=== PATIENT | female | born 1990 | race Caucasian/White ===

== ENCOUNTER → 2025-05-01 10:31 | Outpatient (BNVA) | payer MEDICARE, OTHER, SELFPAY | PROVIDERS: Visit Provider Psychiatry & Neurology Psychiatry | DX: Z79.899 Other long term (current) drug therapy (principal) | CPT/HCPCS: 80053; 80061; 83036; 83721; 84443; 85025 ==

== ENCOUNTER → 2025-07-29 13:46 | Outpatient (BNVA) | payer MEDICARE, MEDICAID, SELFPAY ==
[2025-06-26 13:05] VITALS: BP 122/83; BMI 27.9
== END ==
PROVIDERS: PCP Nurse Practitioner; Visit Provider Nurse Practitioner
DX: E11.9 Type 2 diabetes mellitus without complications (principal)
CPT/HCPCS: 80053; 80061; 83036; 84443; 85025

== ENCOUNTER 2025-08-19 18:29 | Inpatient (IN) | payer MEDICARE, MEDICAID, SELFPAY ==
[2025-06-26 13:05] VITALS: BP 122/83; BMI 27.9
[2025-08-19 18:31] VITALS: BP 134/81; PULSE 105; RESP 18; TEMP 36.7; O2SAT 96; BMI 26.6
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
--- OUTSIDE RECORDS SUMMARY | 2025-08-19 19:07 | XMS_ITS | Encounter Summary ---
Author Organization [facility] Address [address] [place] [address] Care Team Providers Care Multi Spindle Operator Name Role Phone Henrry Soares MD Primary Care Provider [phone] Encounter Details Date Type Department Care Team (Latest Contact Info) Description 09/08/2003 Outpatient [facility] Medicine[address] [phone] Saul Rizzo MD [address] [phone] NEUROTIC DEPRESSION (Primary Dx) Social History Tobacco Use Types Packs/Day Years Used Date Smoking Tobacco: Never Assessed Comments Unknown Sex and Gender Information Value Date Recorded Sex Assigned at Not on file Legal Sex Female 6:13 AM WOOL SACKER Gender Identity Not on file Sexual Orientation Not on file documented as of this encounter Plan of Treatment Not on file documented as of this encounter Visit Diagnoses Diagnosis Dysthymic disorder- Primary documented in this encounter Care Teams Multi Spindle Operator Relationship Specialty Start Date End Date Henrry Soares MD PCP - General 03/06/08 documented as of this encounter
--- OUTSIDE RECORDS SUMMARY | 2025-08-19 19:07 | XMS_ITS | Encounter Summary ---
Author Organization [facility] Address [address] [place] [address] Care Team Providers Care Account Assistant Name Role Phone Henrry Soares MD Primary Care Provider [phone] Encounter Details Date Type Department Care Team (Late st Contact Info) Description 06/25/2004 Outpatient [facility] Oral and Maxillo Surgery[address] [place] [address] Social History Tobacco Use Types Packs/Day Years Used Date Smoking Tobacco: Never Assessed Comments Unknown Sex and Gender Information Value Date Recorded Sex Assigned at Not on file Legal Sex Female 6:13 AM NARROW FABRIC CALENDERER Gender Identity Not on file Sexual Orientation Not on file documented as of this encounter Plan of Treatment Not on file documented as of this encounter Visit Diagnoses Not on filedocumented in this encounter Care Teams Account Assistant Relationship Specialty Start Date End Date Henrry Soares MD PCP - General 03/06/08 documented as of this encounter
--- OUTSIDE RECORDS SUMMARY | 2025-08-19 19:07 | XMS_ITS | Encounter Summary ---
Author Organization [facility] Address [address] [place] [address] Care Team Providers Care Concrete Building Assembler Name Role Phone Henrry Soares MD Primary Care Provider [phone] Encounter Details Date Type Department Care Team (Latest Contact Info) Description 10/22/2003 Outpatient Historical [facility] Medicine- [address] [phone] Charlette Lu MD [address] [place] [address] NEUROTIC DEPRESSION (Primary Dx) Social History Tobacco Use Types Packs/Day Years Used Date Smoking Tobacco: Never Assessed Comments Unknown Sex and Gender Information Value Date Recorded Sex Assigned at Not on file Legal Sex Female 6:13 AM 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
--- OUTSIDE RECORDS SUMMARY | 2025-08-19 19:07 | XMS_ITS | Encounter Summary ---
Author Organization [facility] Address [address] [place] [address] Care Team Providers Care Track Vehicle Repairer Name Role Phone Henrry Soares MD Primary Care Provider Encounter Details Date Type Department Care Team (Latest Contact Info) Description 11/02/2005 Outpatient Historical [facility] [address] [phone] Bushra Palomino, [facility] [facility] [address] [place] [address] RECURR DEPR PSYCH-SEVERE (CMS/HCC) (Primary Dx) Social History Tobacco Use Types Packs/Day Years Used Date Smoking Tobacco: Never Assessed Comments Unknown Sex and Gender Information Value Date Recorded Sex Assigned at Not on file Legal Sex Female 6:13 AM IT PROGRAM AUDITOR Gender Identity Not on file Sexual Orientation Not on file documented as of this encounter Plan of Treatment Not on file documented as of this encounter Visit Diagnoses Diagnosis Major depressive disorder, recurrent episode, severe, without mention of psychotic behavior (CMS/HCC)- Primary Major depressive disorder, recurrent episode, severe, without mention of psychotic behavior documented in this encounter Care Teams Track Vehicle Repairer Relationship Specialty Start Date End Date Henrry Soares MD PCP - General 03/06/08 documented as of this encounter
--- OUTSIDE RECORDS SUMMARY | 2025-08-19 19:07 | XMS_ITS | Encounter Summary ---
Author Organization [facility] Address [address] [place] [address] Care Team Providers Care Mechanical Drafter Name Role Phone Henrry Soares MD Primary Care Provider Encounter Details Date Type Department Care Team (Latest Contact Info) Description 11/11/2005 Outpatient Historical [facility] Medicine [place] [address] [phone] Judit Golden, [facility] [address] [phone] ACUTE URI NOS (Primary Dx) Social History Tobacco Use Types Packs/Day Years Used Date Smoking Tobacco: Never Assessed Comments Unknown Sex and Gender Information Value Date Recorded Sex Assigned at Not on file Legal Sex Female 6:13 AM RAW MILL OPERATOR Gender Identity Not on file Sexual Orientation Not on file documented as of this encounter Plan of Treatment Not on file documented as of this encounter Visit Diagnoses Diagnosis Acute upper respiratory infections of unspecified site- Primary documented in this encounter Care Teams Mechanical Drafter Relationship Specialty Start Date End Date Henrry Soares MD PCP - General 03/06/08 documented as of this encounter
--- OUTSIDE RECORDS SUMMARY | 2025-08-19 19:07 | XMS_ITS | Encounter Summary ---
Author Organization [facility] Address [address] [place] [address] Care Team Providers Care Shoulder Boner Name Role Phone Henrry Soares MD Primary Care Provider Encounter Details Date Type Department Care Team (Latest Contact Info) Description 03/15/2006 Outpatient Historical [facility] Medicine [place] [address] [phone] Henrry Soares MD [address] [place] [phone] Unspecified Backache (Primary Dx) Social History Tobacco Use Types Packs/Day Years Used Date Smoking Tobacco: Never Assessed Comments Unknown Sex and Gender Information Value Date Recorded Sex Assigned at Not on file Legal Sex Female 6:13 AM ASSEMBLY STOCK SUPERVISOR Gender Identity Not on file Sexual Orientation Not on file documented as of this encounter Plan of Treatment Not on file documented as of this encounter Visit Diagnoses Diagnosis Backache, unspecified- Primary documented in this encounter Care Teams Shoulder Boner Relationship Specialty Start Date End Date eHnrry Soares MD PCP - General 03/06/08 documented as of this encounter
--- OUTSIDE RECORDS SUMMARY | 2025-08-19 19:07 | XMS_ITS | Encounter Summary ---
Author Organization [facility] Address [address] [place] [address] Care Team Providers Care Bullet Swaging Machine Operator Name Role Phone Henrry Soares MD Primary Care Provider [phone] Encounter Details Date Type Department Care Team (Late st Contact Info) Description 03/10/2004 Outpatient Historical [address] [phone] Social History Tobacco Use Types Packs/Day Years Used Date Smoking Tobacco: Never Assessed Comments Unknown Sex and Gender Information Value Date Recorded Sex Assigned at Not on file Legal Sex Female 6:13 AM BANKRUPTCY LEGAL ASSISTANT Gender Identity Not on file Sexual Orientation Not on file documented as of this encounter Plan of Treatment Not on file documented as of this encounter Visit Diagnoses Not on filedocumented in this encounter Care Teams Bullet Swaging Machine Operator Relationship Specialty Start Date End Date Henrry Soares MD PCP - General 03/06/08 documented as of this encounter
--- OUTSIDE RECORDS SUMMARY | 2025-08-19 19:07 | XMS_ITS | Encounter Summary ---
Author Organization [facility] Address [address] [place] [address] Care Team Providers Care Restaurant Shift Supervisor Name Role Phone Henrry Soares MD Primary Care Provider [phone] Encounter Details Date Type Department Care Team (Latest Contact Info) Description 09/22/2003 Outpatient Historical [facility] Medicine[address] [phone] Saul Rizzo MD [address] [phone] NEUROTIC DEPRESSION (Primary Dx) Social History Tobacco Use Types Packs/Day Years Used Date Smoking Tobacco: Never Assessed Comments Unknown Sex and Gender Information Value Date Recorded Sex Assigned at Not on file Legal Sex Female 6:13 AM BUCKLE SEWER MACHINE Gender Identity Not on file Sexual Orientation Not on file documented as of this encounter Plan of Treatment Not on file documented as of this encounter Visit Diagnoses Diagnosis Dysthymic disorder- Primary documented in this encounter Care Teams Restaurant Shift Supervisor Relationship Specialty Start Date End Date Henrry Soares MD PCP - General 03/06/08 documented as of this encounter
--- OUTSIDE RECORDS SUMMARY | 2025-08-19 19:07 | XMS_ITS | Encounter Summary ---
Author Organization [facility] Address [address] [place] [address] Care Team Providers Care Marine Biologist Name Role Phone Henrry Soares MD Primary Care Provider Encounter Details Date Type Department Care Team (Latest Contact Info) Description 11/23/[address] [facility] [address] [phone] Bushra Palomino, [facility] [address] [place] [address] RECURR DEPR PSYCH-SEVERE (CMS/HCC) (Primary Dx) Social History Tobacco Use Types Packs/Day Years Used Date Smoking Tobacco: Never Assessed Comments Unknown Sex and Gender Information Value Date Recorded Sex Assigned at Not on file Legal Sex Female 6:13 AM SIX SIGMA PROJECT MANAGER Gender Identity Not on file Sexual Orientation Not on file documented as of this encounter Plan of Treatment Not on file documented as of this encounter Visit Diagnoses Diagnosis Major depressive disorder, recurrent episode, severe, without mention of psychotic behavior (CMS/HCC)- Primary Major depressive disorder, recurrent episode, severe, without mention of psychotic behavior documented in this encounter Care Teams Marine Biologist Relationship Specialty Start Date End Date Henrry Soares MD PCP - General 03/06/08 documented as of this encounter
--- OUTSIDE RECORDS SUMMARY | 2025-08-19 19:07 | XMS_ITS | Encounter Summary ---
Author Organization [facility] Address [address] [place] [address] Care Team Providers Care General Dentist/Owner Name Role Phone Henrry Soares MD Primary Care Provider Encounter Details Date Type Department Care Team (Latest Contact Info) Description 08/20/2007 Outpatient Historical [facility] Medicine [place] [address] [phone] Henrry Soares MD [address] [place] [phone] Acute Bronchitis (Primary Dx) Social History Tobacco Use Types Packs/Day Years Used Date Smoking Tobacco: Never Assessed Comments Unknown Sex and Gender Information Value Date Recorded Sex Assigned at Not on file Legal Sex Female 6:13 AM PHD INTERNSHIP Gender Identity Not on file Sexual Orientation Not on file documented as of this encounter Plan of Treatment Not on file documented as of this encounter Visit Diagnoses Diagnosis Acute bronchitis- Primary documented in this encounter Care Teams General Dentist/Owner Relationship Specialty Start Date End Date Henrry Soares MD PCP - General 03/06/08 documented as of this encounter
--- OUTSIDE RECORDS SUMMARY | 2025-08-19 19:07 | XMS_ITS | Encounter Summary ---
Author Organization [facility] Address [address] [place] [address] Care Team Providers Care Direct Chill Casting Operator Name Role Phone Henrry Soares MD Primary Care Provider Encounter Details Date Type Department Care Team (Latest Contact Info) Description 07/03/2006 Outpatient Historical [facility] Medicine [place] [address] [phone] Henrry Soares MD [address] [place] [phone] Acute Bronchitis (Primary Dx) Social History Tobacco Use Types Packs/Day Years Used Date Smoking Tobacco: Never Assessed Comments Unknown Sex and Gender Information Value Date Recorded Sex Assigned at Not on file Legal Sex Female 6:13 AM ADJUNCT FACULTY FOR MEDICAL TERMINOLOGY Gender Identity Not on file Sexual Orientation Not on file documented as of this encounter Plan of Treatment Not on file documented as of this encounter Visit Diagnoses Diagnosis Acute bronchitis- Primary documented in this encounter Care Teams Direct Chill Casting Operator Relationship Specialty Start Date End Date Henrry Soares MD PCP - General 03/06/08 documented as of this encounter
--- OUTSIDE RECORDS SUMMARY | 2025-08-19 19:07 | XMS_ITS | Encounter Summary ---
Author Organization [facility] Address [address] [place] [address] Care Team Providers Care Oral Surgery Technician Name Role Phone Henrry Soares MD Primary Care Provider Encounter Details Date Type Department Care Team (Latest Contact Info) Description 05/10/2006 Outpatient Historical [facility] [address] [phone] Henrry Soares MD [address] [place] [phone] Insomnia, Unspecified (Primary Dx); Dysthymic Disorder Social History Tobacco Use Types Packs/Day Years Used Date Smoking Tobacco: Never Assessed Comments Unknown Sex and Gender Information Value Date Recorded Sex Assigned at Not on file Legal Sex Female 6:13 AM SENIOR WEB SERVICES DEVELOPER Gender Identity Not on file Sexual Orientation Not on file documented as of this encounter Plan of Treatment Not on file documented as of this encounter Visit Diagnoses Diagnosis Insomnia, unspecified- Primary Dysthymic disorder documented in this encounter Care Teams Oral Surgery Technician Relationship Specialty Start Date End Date Henrry Soares MD PCP - General 03/06/08 documented as of this encounter
--- OUTSIDE RECORDS SUMMARY | 2025-08-19 19:07 | XMS_ITS | Encounter Summary ---
Author Organization [facility] Address [address] [place] [address] Care Team Providers Care Absorption Plant Operator Helper Name Role Phone Henrry Soares MD Primary Care Provider Encounter Details Date Type Department Care Team (Latest Contact Info) Description 11/16/2005 Outpatient Historical [facility] [address] [phone] Bushra Palomino, [facility] [address] [place] [address] RECURR DEPR PSYCH-SEVERE (CMS/HCC) (Primary Dx) Social History Tobacco Use Types Packs/Day Years Used Date Smoking Tobacco: Never Assessed Comments Unknown Sex and Gender Information Value Date Recorded Sex Assigned at Not on file Legal Sex Female 6:13 AM CUPOLA TAPPER HELPER Gender Identity Not on file Sexual Orientation Not on file documented as of this encounter Plan of Treatment Not on file documented as of this encounter Visit Diagnoses Diagnosis Major depressive disorder, recurrent episode, severe, without mention of psychotic behavior (CMS/HCC)- Primary Major depressive disorder, recurrent episode, severe, without mention of psychotic behavior documented in this encounter Care Teams Absorption Plant Operator Helper Relationship Specialty Start Date End Date Henrry Soares MD PCP - General 03/06/08 documented as of this encounter
--- OUTSIDE RECORDS SUMMARY | 2025-08-19 19:07 | XMS_ITS | Encounter Summary ---
Author Organization [facility] Address [address] [place] [address] Care Team Providers Care Cutter Wet Machine Name Role Phone Henrry Soares MD Primary Care Provider Encounter Details Date Type Department Care Team (Latest Contact Info) Description 03/11/2004 Outpatient Historical [facility] [address] [phone] Henrry Soares MD [address] [place] [phone] SPRAIN OF ANKLE NOS (Primary Dx); NEUROTIC DEPRESSION Social History Tobacco Use Types Packs/Day Years Used Date Smoking Tobacco: Never Assessed Comments Unknown Sex and Gender Information Value Date Recorded Sex Assigned at Not on file Legal Sex Female 6:13 AM APPLICATIONS SPECIALIST Gender Identity Not on file Sexual Orientation Not on file documented as of this encounter Plan of Treatment Not on file documented as of this encounter Visit Diagnoses Diagnosis Sprain of ankle, unspecified site- Primary Dysthymic disorder documented in this encounter Care Teams Cutter Wet Machine Relationship Specialty Start Date End Date Henrry Soares MD PCP - General 03/06/08 documented as of this encounter
--- OUTSIDE RECORDS SUMMARY | 2025-08-19 19:07 | XMS_ITS | Encounter Summary ---
Author Organization [facility] Address [address] [place] [address] Care Team Providers Care Pool Servicer Name Role Phone Henrry Soares MD Primary Care Provider Encounter Details Date Type Department Care Team (Latest Contact Info) Description 11/30/2005 Outpatient Historical [facility] [address] [place] [address] [phone] Henrry Soares MD [address] [phone] DYSTHYMIC DISORDER (Primary Dx) Social History Tobacco Use Types Packs/Day Years Used Date Smoking Tobacco: Never Assessed Comments Unknown Sex and Gender Information Value Date Recorded Sex Assigned at Not on file Legal Sex Female 6:13 AM ACID PATROLLER Gender Identity Not on file Sexual Orientation Not on file documented as of this encounter Plan of Treatment Not on file documented as of this encounter Visit Diagnoses Diagnosis Dysthymic disorder- Primary documented in this encounter Care Teams Pool Servicer Relationship Specialty Start Date End Date Henrry Soares MD PCP - General 03/06/08 documented as of this encounter
--- OUTSIDE RECORDS SUMMARY | 2025-08-19 19:07 | XMS_ITS | Encounter Summary ---
Author Organization [facility] Address [address] [place] [address] Care Team Providers Care Aircraft Part Assembler Name Role Phone Henrry Soares MD Primary Care Provider Encounter Details Date Type Department Care Team (Late st Contact Info) Description 03/24/2004 Outpatient Historical [address] [phone] Social History Tobacco Use Types Packs/Day Years Used Date Smoking Tobacco: Never Assessed Comments Unknown Sex and Gender Information Value Date Recorded Sex Assigned at Not on file Legal Sex Female 6:13 AM WELDING ROBOT OPERATOR Gender Identity Not on file Sexual Orientation Not on file documented as of this encounter Plan of Treatment Not on file documented as of this encounter Visit Diagnoses Not on filedocumented in this encounter Care Teams Aircraft Part Assembler Relationship Specialty Start Date End Date Henrry Soares MD PCP - General 03/06/08 documented as of this encounter
--- OUTSIDE RECORDS SUMMARY | 2025-08-19 19:07 | XMS_ITS | Encounter Summary ---
Author Organization [facility] Address [address] [place] [address] Care Team Providers Care Certified Phlebotomist Name Role Phone Henrry Soares MD Primary Care Provider Encounter Details Date Type Department Care Team (Late st Contact Info) Description 07/16/2007 Outpatient Historical [facility] [address] [phone] Moira Hodge MD [address] [place] [address] Social History Tobacco Use Types Packs/Day Years Used Date Smoking Tobacco: Never Assessed Comments Unknown Sex and Gender Information Value Date Recorded Sex Assigned at Not on file Legal Sex Female 6:13 AM KST OPERATOR Gender Identity Not on file Sexual Orientation Not on file documented as of this encounter Plan of Treatment Not on file documented as of this encounter Visit Diagnoses Not on filedocumented in this encounter Care Teams Certified Phlebotomist Relationship Specialty Start Date End Date Henrry Soares MD PCP - General 03/06/08 documented as of this encounter
--- OUTSIDE RECORDS SUMMARY | 2025-08-19 19:07 | XMS_ITS | Encounter Summary ---
Author Organization [facility] Address [address] [place] [address] Care Team Providers Care Inspector Ball Points Name Role Phone Henrry Soares MD Primary Care Provider Encounter Details Date Type Department Care Team (Latest Contact Info) Description 02/10/2004 Outpatient Historical [facility] [address] [phone] Henrry Soares MD [address], [place] [phone] NONINFEC GASTROENTERIT NEC (Primary Dx) Social History Tobacco Use Types Packs/Day Years Used Date Smoking Tobacco: Never Assessed Comments Unknown Sex and Gender Information Value Date Recorded Sex Assigned at Not on file Legal Sex Female 6:13 AM FIRE CODE INSPECTOR Gender Identity Not on file Sexual Orientation Not on file documented as of this encounter Plan of Treatment Not on file documented as of this encounter Visit Diagnoses Diagnosis Other and unspecified noninfectious gastroenteritis and colitis(558.9)- Primary Other and unspecified noninfectious gastroenteritis and colitis documented in this encounter Care Teams Inspector Ball Points Relationship Specialty Start Date End Date Henrry Soares MD PCP - General 03/06/08 documented as of this encounter
--- OUTSIDE RECORDS SUMMARY | 2025-08-19 19:07 | XMS_ITS | Encounter Summary ---
Author Organization [facility] Address [address] [place] [address] Care Team Providers Care Carbonation Equipment Operator Name Role Phone Henrry Soares MD Primary Care Provider Encounter Details Date Type Department Care Team (Latest Contact Info) Description 09/07/2005 Outpatient Historical [facility] [address] [phone] Bushra Palomino, [facility] [address] [place] [address] RECURR DEPR PSYCH-SEVERE (CMS/HCC) (Primary Dx) Social History Tobacco Use Types Packs/Day Years Used Date Smoking Tobacco: Never Assessed Comments Unknown Sex and Gender Information Value Date Recorded Sex Assigned at Not on file Legal Sex Female 6:13 AM ORTHOPAEDIC TECHNOLOGIST Gender Identity Not on file Sexual Orientation Not on file documented as of this encounter Plan of Treatment Not on file documented as of this encounter Visit Diagnoses Diagnosis Major depressive disorder, recurrent episode, severe, without mention of psychotic behavior (CMS/HCC)- Primary Major depressive disorder, recurrent episode, severe, without mention of psychotic behavior documented in this encounter Care Teams Carbonation Equipment Operator Relationship Specialty Start Date End Date Henrry Soares MD PCP - General 03/06/08 documented as of this encounter
--- OUTSIDE RECORDS SUMMARY | 2025-08-19 19:07 | XMS_ITS | Encounter Summary ---
Author Organization [facility] Address [address] [place] [address] Care Team Providers Care Naval Inspector Name Role Phone Henrry Soares MD Primary Care Provider Encounter Details Date Type Department Care Team (Latest Contact Info) Description 01/19/1999 Outpatient Historical [facility] [address] [phone] Thierry Cornelius MD [address] [place] [address] Influenza with other respiratory manifestations (Primary Dx) Social History Tobacco Use Types Packs/Day Years Used Date Smoking Tobacco: Never Assessed Comments Unknown Sex and Gender Information Value Date Recorded Sex Assigned at Not on file Legal Sex Female 6:13 AM WELDING MACHINE OPERATOR GAS Gender Identity Not on file Sexual Orientation Not on file documented as of this encounter Plan of Treatment Not on file documented as of this encounter Visit Diagnoses Diagnosis Influenza with other respiratory manifestations- Primary documented in this encounter Care Teams Naval Inspector Relationship Specialty Start Date End Date Henrry Soares MD PCP - General 03/06/08 documented as of this encounter
--- OUTSIDE RECORDS SUMMARY | 2025-08-19 19:07 | XMS_ITS | Encounter Summary ---
Author Organization [facility] Address [address] [place] [address] Care Team Providers Care Preschool Special Education Teacher Name Role Phone Henrry Soares MD Primary Care Provider Encounter Details Date Type Department Care Team (Latest Contact Info) Description 12/28/2005 Outpatient Historical [facility] [address] [phone] Bushra Palomino, [facility] [address] [place] [address] Recur Major Depress, Severe (CMS/HCC) (Primary Dx) Social History Tobacco Use Types Packs/Day Years Used Date Smoking Tobacco: Never Assessed Comments Unknown Sex and Gender Information Value Date Recorded Sex Assigned at Not on file Legal Sex Female 6:13 AM STATION ENGINEER CHIEF Gender Identity Not on file Sexual Orientation Not on file documented as of this encounter Plan of Treatment Not on file documented as of this encounter Visit Diagnoses Diagnosis Major depressive disorder, recurrent episode, severe, without mention of psychotic behavior (CMS/HCC)- Primary Major depressive disorder, recurrent episode, severe, without mention of psychotic behavior documented in this encounter Care Teams Preschool Special Education Teacher Relationship Specialty Start Date End Date Henrry Soares MD PCP - General 03/06/08 documented as of this encounter
--- OUTSIDE RECORDS SUMMARY | 2025-08-19 19:07 | XMS_ITS | Encounter Summary ---
Author Organization [facility] Address [address] [place] [address] Care Team Providers Care Pinion Polisher Name Role Phone Henrry Soares MD Primary Care Provider Encounter Details Date Type Department Care Team (Latest Contact Info) Description 09/29/2004 Outpatient Historical [facility] [address], [place] [phone] Henrry Soares MD [address], [place] [phone] DYSTHYMIC DISORDER (Primary Dx); DRUG ABUSE NEC-UNSPEC ([facility]) Social History Tobacco Use Types Packs/Day Years Used Date Smoking Tobacco: Never Assessed Comments Unknown Sex and Gender Information Value Date Recorded Sex Assigned at Not on file Legal Sex Female 6:13 AM MEDICAL RECORD SPECIALIST Gender Identity Not on file Sexual Orientation Not on file documented as of this encounter Plan of Treatment Not on file documented as of this encounter Visit Diagnoses Diagnosis Dysthymic disorder- Primary Other, mixed, or unspecified nondependent drug abuse, unspecified documented in this encounter Care Teams Pinion Polisher Relationship Specialty Start Date End Date Henrry Soares MD PCP - General 03/06/08 documented as of this encounter
--- OUTSIDE RECORDS SUMMARY | 2025-08-19 19:07 | XMS_ITS | Encounter Summary ---
Author Organization [facility] Address [address] [place] [address] Care Team Providers Care National Sales Director Name Role Phone Henrry Soares MD Primary Care Provider Encounter Details Date Type Department Care Team (Latest Contact Info) Description 02/02/2004 Outpatient Historical [address] [phone] Monik Umanzor MD [address] [place] [address], [address] EPISTAXIS (Primary Dx) Social History Tobacco Use Types Packs/Day Years Used Date Smoking Tobacco: Never Assessed Comments Unknown Sex and Gender Information Value Date Recorded Sex Assigned at Not on file Legal Sex Female 6:13 AM VENEER MANUFACTURER Gender Identity Not on file Sexual Orientation Not on file documented as of this encounter Plan of Treatment Not on file documented as of this encounter Visit Diagnoses Diagnosis Epistaxis- Primary documented in this encounter Care Teams National Sales Director Relationship Specialty Start Date End Date Henrry Soares MD PCP - General 03/06/08 documented as of this encounter
--- OUTSIDE RECORDS SUMMARY | 2025-08-19 19:07 | XMS_ITS | Encounter Summary ---
Author Organization [facility] Address [address] [place] [address] Care Team Providers Care Tufter Operator Name Role Phone Henrry Soares MD Primary Care Provider Encounter Details Date Type Department Care Team (Latest Contact Info) Description 09/23/2005 Outpatient Historical [facility] [address] [phone] Busrha Palomino, [facility] [address] [place] [address] RECURR DEPR PSYCH-SEVERE (CMS/HCC) (Primary Dx) Social History Tobacco Use Types Packs/Day Years Used Date Smoking Tobacco: Never Assessed Comments Unknown Sex and Gender Information Value Date Recorded Sex Assigned at Not on file Legal Sex Female 6:13 AM OB/GYN PHYSICIAN Gender Identity Not on file Sexual Orientation Not on file documented as of this encounter Plan of Treatment Not on file documented as of this encounter Visit Diagnoses Diagnosis Major depressive disorder, recurrent episode, severe, without mention of psychotic behavior (CMS/HCC)- Primary Major depressive disorder, recurrent episode, severe, without mention of psychotic behavior documented in this encounter Care Teams Tufter Operator Relationship Specialty Start Date End Date Henrry Soares MD PCP - General 03/06/08 documented as of this encounter
--- OUTSIDE RECORDS SUMMARY | 2025-08-19 19:07 | XMS_ITS | Encounter Summary ---
Author Organization [facility] Address [address] [place] [address] Care Team Providers Care Buffet Manager Name Role Phone Henrry Soares MD Primary Care Provider Encounter Details Date Type Department Care Team (Latest Contact Info) Description 06/06/[address] [facility] [address] [phone] Henrry Soares MD [address] [place] [phone] Attention Deficit Disorder with Hyperactivity (Primary Dx) Social History Tobacco Use Types Packs/Day Years Used Date Smoking Tobacco: Never Assessed Comments Unknown Sex and Gender Information Value Date Recorded Sex Assigned at Not on file Legal Sex Female 6:13 AM RETIREMENT VILLAGE MANAGER Gender Identity Not on file Sexual Orientation Not on file documented as of this encounter Plan of Treatment Not on file documented as of this encounter Visit Diagnoses Diagnosis Attention deficit disorder with hyperactivity(314.01)- Primary Attention deficit disorder with hyperactivity documented in this encounter Care Teams Buffet Manager Relationship Specialty Start Date End Date Henrry Soares MD PCP - General 03/06/08 documented as of this encounter
--- OUTSIDE RECORDS SUMMARY | 2025-08-19 19:07 | XMS_ITS | Encounter Summary ---
Author Organization [facility] Address [address] [place] [address] Care Team Providers Care Waterside Worker Name Role Phone Henrry Soares MD Primary Care Provider Encounter Details Date Type Department Care Team (Latest Contact Info) Description 10/26/2005 Outpatient Historical [facility] [address] [phone] Bushra Palomino, [facility] [address] [facility] [address] [place] [address] RECURR DEPR PSYCH-SEVERE (CMS/HCC) (Primary Dx) Social History Tobacco Use Types Packs/Day Years Used Date Smoking Tobacco: Never Assessed Comments Unknown Sex and Gender Information Value Date Recorded Sex Assigned at Not on file Legal Sex Female 6:13 AM LABORER LANDSCAPE Gender Identity Not on file Sexual Orientation Not on file documented as of this encounter Plan of Treatment Not on file documented as of this encounter Visit Diagnoses Diagnosis Major depressive disorder, recurrent episode, severe, without mention of psychotic behavior (CMS/HCC)- Primary Major depressive disorder, recurrent episode, severe, without mention of psychotic behavior documented in this encounter Care Teams Waterside Worker Relationship Specialty Start Date End Date Henrry Soares MD PCP - General 03/06/08 documented as of this encounter
--- OUTSIDE RECORDS SUMMARY | 2025-08-19 19:07 | XMS_ITS | Encounter Summary ---
Author Organization [facility] Address [address] [place] [address] Care Team Providers Care Power House Control Room Operator Name Role Phone Henrry Soares MD Primary Care Provider [phone] Encounter Details Date Type Department Care Team (Latest Contact Info) Description 06/06/2006 Outpatient Historical [facility] [address] [phone] Henrry Soares MD [address] [place] [phone] Generalized Anxiety Disorder (Primary Dx); Dysthymic Disorder Social History Tobacco Use Types Packs/Day Years Used Date Smoking Tobacco: Never Assessed Comments Unknown Sex and Gender Information Value Date Recorded Sex Assigned at Not on file Legal Sex Female 6:13 AM TEACHER COUNSELOR Gender Identity Not on file Sexual Orientation Not on file documented as of this encounter Plan of Treatment Not on file documented as of this encounter Visit Diagnoses Diagnosis Generalized anxiety disorder- Primary Dysthymic disorder documented in this encounter Care Teams Power House Control Room Operator Relationship Specialty Start Date End Date Henrry Soares MD PCP - General 03/06/08 documented as of this encounter
--- OUTSIDE RECORDS SUMMARY | 2025-08-19 19:07 | XMS_ITS | Encounter Summary ---
Author Organization [facility] Address [address] [place] [address] Care Team Providers Care Solderer Assembler Name Role Phone Henrry Soares MD Primary Care Provider Encounter Details Date Type Department Care Team (Latest Contact Info) Description 12/21/2005 Outpatient Historical [facility] [address] [phone] Bushra Palomino, [facility] [address] [place] [address] Major Depress Dis, Severe (CMS/HCC) (Primary Dx) Social History Tobacco Use Types Packs/Day Years Used Date Smoking Tobacco: Never Assessed Comments Unknown Sex and Gender Information Value Date Recorded Sex Assigned at Not on file Legal Sex Female 6:13 AM CARPET SEWER Gender Identity Not on file Sexual Orientation Not on file documented as of this encounter Plan of Treatment Not on file documented as of this encounter Visit Diagnoses Diagnosis Major depressive disorder, single episode, severe, without mention of psychotic behavior (CMS/HCC)- Primary Major depressive disorder, single episode, severe, without mention of psychotic behavior documented in this encounter Care Teams Solderer Assembler Relationship Specialty Start Date End Date Henrry Soares MD PCP - General 03/06/08 documented as of this encounter
--- OUTSIDE RECORDS SUMMARY | 2025-08-19 19:07 | XMS_ITS | Encounter Summary ---
Author Organization [facility] Address [address] [facility] Attn: [place] [address] Care Team Providers Care Steel Heater Name Role Phone Henrry Soares MD Primary Care Provider [phone] Encounter Details Date Type Department Care Team (Late st Contact Info) Description 07/16/2007 Outpatient Historical Moira Hodge MD [address] [place] [phone] Social History Tobacco Use Types Packs/Day Years Used Date Smoking Tobacco: Never Assessed Comments Unknown Sex and Gender Information Value Date Recorded Sex Assigned at Not on file Legal Sex Female 6:13 AM USER EXPERIENCE LEAD Gender Identity Not on file Sexual Orientation Not on file documented as of this encounter Plan of Treatment Not on file documented as of this encounter Visit Diagnoses Not on filedocumented in this encounter Care Teams Steel Heater Relationship Specialty Start Date End Date Henrry Soares MD PCP - General 03/06/08 documented as of this encounter
--- OUTSIDE RECORDS SUMMARY | 2025-08-19 19:07 | XMS_ITS | Encounter Summary ---
Author Organization [facility] Address [address] [place] [address] Care Team Providers Care Parts Puller Name Role Phone Henrry Soares MD Primary Care Provider Encounter Details Date Type Department Care Team (Latest Contact Info) Description 09/30/1998 Outpatient [facility] [address] [phone] Saul Rizzo MD [address] [phone] Abdominal pain, unspecified site (Primary Dx) Social History Tobacco Use Types Packs/Day Years Used Date Smoking Tobacco: Never Assessed Comments Unknown Sex and Gender Information Value Date Recorded Sex Assigned at Not on file Legal Sex Female 6:13 AM SECURITY MESSENGER Gender Identity Not on file Sexual Orientation Not on file documented as of this encounter Plan of Treatment Not on file documented as of this encounter Visit Diagnoses Diagnosis Abdominal pain, unspecified site- Primary documented in this encounter Care Teams Parts Puller Relationship Specialty Start Date End Date Henrry Soares MD PCP - General 03/06/08 documented as of this encounter
--- OUTSIDE RECORDS SUMMARY | 2025-08-19 19:07 | XMS_ITS | Encounter Summary ---
Author Organization [facility] Address [address] [place] [address] Care Team Providers Care Machine Pie Maker Name Role Phone Henrry Soares MD Primary Care Provider Encounter Details Date Type Department Care Team (Latest Contact Info) Description 11/02/2005 Outpatient Historical [facility] [address] [phone] Henrry Soares MD [address] [place] [phone] DYSTHYMIC DISORDER (Primary Dx) Social History Tobacco Use Types Packs/Day Years Used Date Smoking Tobacco: Never Assessed Comments Unknown Sex and Gender Information Value Date Recorded Sex Assigned at Not on file Legal Sex Female 6:13 AM EARLY HEAD START TEACHER Gender Identity Not on file Sexual Orientation Not on file documented as of this encounter Plan of Treatment Not on file documented as of this encounter Visit Diagnoses Diagnosis Dysthymic disorder- Primary documented in this encounter Care Teams Machine Pie Maker Relationship Specialty Start Date End Date Henrry Soares MD PCP - General 03/06/08 documented as of this encounter
--- OUTSIDE RECORDS SUMMARY | 2025-08-19 19:07 | XMS_ITS | Encounter Summary ---
Author Organization [facility] Address [address] [place] [address] Care Team Providers Care Overhead Garage Door Hanger Name Role Phone Henrry Soares MD Primary Care Provider Encounter Details Date Type Department Care Team (Latest Contact Info) Description 11/30/[address] [facility] [address] [phone] Bushra Palomino, [facility] [address] [place] [address] RECURR DEPR PSYCH-SEVERE (CMS/HCC) (Primary Dx) Social History Tobacco Use Types Packs/Day Years Used Date Smoking Tobacco: Never Assessed Comments Unknown Sex and Gender Information Value Date Recorded Sex Assigned at Not on file Legal Sex Female 6:13 AM PIPING ENGINEER Gender Identity Not on file Sexual Orientation Not on file documented as of this encounter Plan of Treatment Not on file documented as of this encounter Visit Diagnoses Diagnosis Major depressive disorder, recurrent episode, severe, without mention of psychotic behavior (CMS/HCC)- Primary Major depressive disorder, recurrent episode, severe, without mention of psychotic behavior documented in this encounter Care Teams Overhead Garage Door Hanger Relationship Specialty Start Date End Date Henrry Soares MD PCP - General 03/06/08 documented as of this encounter
--- OUTSIDE RECORDS SUMMARY | 2025-08-19 19:07 | XMS_ITS | Encounter Summary ---
Author Organization [facility] Address [address] [place] [address] Care Team Providers Care Placement Director Name Role Phone Henrry Soares MD Primary Care Provider Encounter Details Date Type Department Care Team (Latest Contact Info) Description 11/09/2005 Outpatient Historical [facility] [address] [phone] Bushra Palomino, [facility] [address] [place] [address] RECURR DEPR PSYCH-SEVERE (CMS/HCC) (Primary Dx) Social History Tobacco Use Types Packs/Day Years Used Date Smoking Tobacco: Never Assessed Comments Unknown Sex and Gender Information Value Date Recorded Sex Assigned at Not on file Legal Sex Female 6:13 AM SPACE CONTROL AGENT Gender Identity Not on file Sexual Orientation Not on file documented as of this encounter Plan of Treatment Not on file documented as of this encounter Visit Diagnoses Diagnosis Major depressive disorder, recurrent episode, severe, without mention of psychotic behavior (CMS/HCC)- Primary Major depressive disorder, recurrent episode, severe, without mention of psychotic behavior documented in this encounter Care Teams Placement Director Relationship Specialty Start Date End Date Henrry Soares MD PCP - General 03/06/08 documented as of this encounter
--- OUTSIDE RECORDS SUMMARY | 2025-08-19 19:07 | XMS_ITS | Encounter Summary ---
Author Organization [facility] Address [address] [place] [address] Care Team Providers Care Precision Honer Name Role Phone Henrry Soares MD Primary Care Provider [phone] Encounter Details Date Type Department Care Team (Latest Contact Info) Description 09/02/2005 Outpatient Historical [facility] [address] [phone] Bushra Palomino, [facility] [address] [place] [address] RECURR DEPR PSYCH-SEVERE (CMS/HCC) (Primary Dx) Social History Tobacco Use Types Packs/Day Years Used Date Smoking Tobacco: Never Assessed Comments Unknown Sex and Gender Information Value Date Recorded Sex Assigned at Not on file Legal Sex Female 6:13 AM PRODUCTION CONTROL SCHEDULER Gender Identity Not on file Sexual Orientation Not on file documented as of this encounter Plan of Treatment Not on file documented as of this encounter Visit Diagnoses Diagnosis Major depressive disorder, recurrent episode, severe, without mention of psychotic behavior (CMS/HCC)- Primary Major depressive disorder, recurrent episode, severe, without mention of psychotic behavior documented in this encounter Care Teams Precision Honer Relationship Specialty Start Date End Date Henrry Soares MD PCP - General 03/06/08 documented as of this encounter
--- OUTSIDE RECORDS SUMMARY | 2025-08-19 19:07 | XMS_ITS | Encounter Summary ---
Author Organization [facility] Address [address] [place] [address] Care Team Providers Care Variety Saw Operator Name Role Phone Henrry Soares MD Primary Care Provider Encounter Details Date Type Department Care Team (Latest Contact Info) Description 12/11/1998 Outpatient [facility] [phone] Saul Rizzo MD [address] [phone] Acute bronchitis (Primary Dx); Acute upper respiratory infections of unspecified site Social History Tobacco Use Types Packs/Day Years Used Date Smoking Tobacco: Never Assessed Comments Unknown Sex and Gender Information Value Date Recorded Sex Assigned at Not on file Legal Sex Female 6:13 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
--- OUTSIDE RECORDS SUMMARY | 2025-08-19 19:07 | XMS_ITS | Encounter Summary ---
Author Organization [facility] Address [address] [place] [address] Care Team Providers Care Silver Plater Name Role Phone Henrry Soares MD Primary Care Provider Encounter Details Date Type Department Care Team (Latest Contact Info) Description 07/16/2007 Outpatient Historical [facility] [address] [phone] Moira Hodge MD [address] [place] [phone] Unspecified Vaginitis and Vulvovaginitis (Primary Dx); Routine Gynecological Examination Social History Tobacco Use Types Packs/Day Years Used Date Smoking Tobacco: Never Assessed Comments Unknown Sex and Gender Information Value Date Recorded Sex Assigned at Not on file Legal Sex Female 6:13 AM 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
--- OUTSIDE RECORDS SUMMARY | 2025-08-19 19:07 | XMS_ITS | Encounter Summary ---
Author Organization [facility] Address [address] [place] [address] Care Team Providers Care Driver'S Education Instructor Name Role Phone Henrry Soares MD Primary Care Provider Encounter Details Date Type Department Care Team (Latest Contact Info) Description 06/23/2004 Outpatient Historical [facility] [address] [place] [address], [place] [phone] Henrry Soares MD [address], [place] [phone] VACCINE FOR TETANUS/DIPHTERIA (Primary Dx) Social History Tobacco Use Types Packs/Day Years Used Date Smoking Tobacco: Never Assessed Comments Unknown Sex and Gender Information Value Date Recorded Sex Assigned at Not on file Legal Sex Female 6:13 AM ACCESS CONSULTANT Gender Identity Not on file Sexual Orientation Not on file documented as of this encounter Plan of Treatment Not on file documented as of this encounter Visit Diagnoses Diagnosis Need for prophylactic vaccination with tetanus-diphtheria (Td)- Primary documented in this encounter Care Teams Driver'S Education Instructor Relationship Specialty Start Date End Date eHnrry Soares MD PCP - General 03/06/08 documented as of this encounter
--- OUTSIDE RECORDS SUMMARY | 2025-08-19 19:08 | XMS_ITS | Encounter Summary ---
Author Organization [facility] Address [address] [place] [address] Care Team Providers Care Iron Piler Name Role Phone Henrry Soares MD Primary Care Provider Encounter Details Date Type Department Care Team (Latest Contact Info) Description 08/26/2002 Outpatient Historical [facility] [address] [phone] Henrry Soares MD [address] [place] [phone] ACUTE URI NOS (Primary Dx); UNSPECIFIED VIRAL INFECTION Social History Tobacco Use Types Packs/Day Years Used Date Smoking Tobacco: Never Assessed Comments Unknown Sex and Gender Information Value Date Recorded Sex Assigned at Not on file Legal Sex Female 6:13 AM STORM DOOR MAKER Gender Identity Not on file Sexual Orientation Not on file documented as of this encounter Plan of Treatment Not on file documented as of this encounter Visit Diagnoses Diagnosis Acute upper respiratory infections of unspecified site- Primary Unspecified viral infection, in conditions classified elsewhere and of unspecified site documented in this encounter Care Teams Iron Piler Relationship Specialty Start Date End Date Henrry Soares MD PCP - General 03/06/08 documented as of this encounter
--- OUTSIDE RECORDS SUMMARY | 2025-08-19 19:08 | XMS_ITS | Clinical Summary ---
Author Organization [facility] Address [address] [address] Care Team Providers Care Vp Of Customer Experience Strategy Name Role Phone Henrry Soares MD Primary Care Provider Allergies No known active allergies Medications acetaminophen (TYLENOL) 325 mg tablet Take 325 mg by mouth every 4 hours as needed. Active benztropine (COGENTIN) 1 mg tablet Take 1 mg by mouth 2 times daily. Active sodium chloride (OCEAN) 0.65 % Aerosol, [place] Administer in each nostril PRN for Allergies. Active haloperidol (HALDOL) 5 mg tablet Take 5 mg by mouth every 6 hours. Active loratadine (CLARITIN) 10 mg tablet Take 10 mg by mouth daily. Active aluminum - magnesium - simethicone (MYLANTA) 200-200-20 mg/5 mL Suspension Take 10 mL by mouth every 6 hours as needed for Dyspepsia. Active LORazepam (ATIVAN) 2 mg/mL Syringe Inject by intraveous injection every 4 hours as needed. Active QUEtiapine (SEROQUEL) 50 mg tablet Take 50 mg by mouth 2 times daily. Active hydrOXYzine HCl (ATARAX) 25 mg tablet Take 25 mg by mouth 3 times daily as needed for Itching. Active OLANZapine (ZYPREXA) 20 mg tablet Take 20 mg by mouth daily at bedtime. Active simvastatin (ZOCOR) 20 mg tablet Take 20 mg by mouth Daily LATE. Active albuterol HFA 90 mcg inhaler Take 2 Puffs by inhalation every 6 hours as needed for Shortness of Breath. Active escitalopram oxalate (LEXAPRO) 20 mg tablet Take 20 mg by mouth daily. Active multivitamin (DAILY-JOSÉ MIGUEL) tablet Take 1 Tablet by mouth daily. Active naltrexone (DEPADE) 50 mg tablet Take 50 mg by mouth daily. Active cyanocobalamin (VITAMIN B-12) 100 mcg tablet Take 100 mcg by mouth daily. Active cholecalciferol, vitamin D3, 5,000 unit Take 400 Units by mouth daily. Active ALPRAZolam (XANAX) 1 mg tablet Take 1 mg by mouth nightly as needed for Anxiety. Active Norgestimate-Eth inyl estradiol (SPRINTEC, 28,) 0.25-35 mg-mcg tablet Take 1 Tablet by mouth daily. 28 Tablet prn 6 Active Active Problems Problem Noted Date Diagnosed Date Cigarette dependence 03/21/2016 Schizoaffective disorder 07/05/2013 Bipolar 1 disorder 07/05/2013 Polysubstance abuse 07/05/2013 Depression with anxiety 04/20/2011 Immunizations Immunization Administration Dates Next Due (M-M-R II/PRIORIX)(12 MO UP) MEASLES, MUMPS AND RUBELLA VIRUS VACCINE, 0.5 ML IM/SUBCUT 05/24/1994,08/05/1991 (TDVAX)(7 YRS UP) TETANUS AN D DIPHTHERIA TOXOIDS, ADSORBED (2 LF OF TETANUS TOXOID AND 2 LF OF DIPHTHERIA TOXOID), 0.5ML (PF), IM 06/23/2004 Dt Dtp Dtap Vaccine 05/24/1994,02/01/1993,1989 HIB, Unspecified Formulation 08/05/1991 Hepatitis B Vaccine 01/12/2000,10/22/1998,1997 IPV/OPV 05/24/1994,02/01/1993,03/24/1990 Family History Medical History Relation Name Comments Thyroid Disease Brother Heart Disease Maternal Grandfather Arthritis-rheumatoid Mother Hypertension Mother Cancer Paternal Grandfather Dementia Paternal Grandfather Breast Cancer Neg Hx Relation Name Status Comments Brother Father unknown Maternal Grandfather Mother Paternal Grandfather Social History Tobacco Use Types Packs/Day Years Used Date Smoking Tobacco: Every Day Cigarettes 0.5 5 Alcohol Use Standard Drinks/Week Comments Yes 0 (1 standard drink = 0.6 oz pur e alcohol) Comments No Sex and Gender Information Value Date Recorded Sex Assigned at Not on file Legal Sex Female 6:13 AM LEATHER PRODUCTION WORKER Gender Identity Not on file Sexual Orientation Not on file Last Filed Vital Signs Vital Sign Reading Time Taken Comments Blood Pressure 112/60 03/21/2016 10:33 AM CDT Pulse 119 11/19/2015 10:20 AM LEATHER PRODUCTION WORKER Temperature 36.9 C (98.5 F) 07/05/2013 10:10 AM CDT Respiratory Rate 18 07/05/2013 10:1 0 AM CDT Oxygen Saturation 98% 07/05/2013 10: 10 AM CDT Inhaled Oxygen Concentration - - Weight 93.4 kg (205 lb 12.8 oz) 016 10:33 AM CDT Height 167.6 cm (5' 6 ) 03/21/2016 10:3 3 AM CDT Body Mass Index 33.22 03/21/2016 10:33 AM CDT Plan of Treatment Health Maintenance Due Date Last Done Comments DTAP/TDAP/TD VACCINES (5 - Tdap) 06/24/2004 06/23/2004, 05/24/1994, 02/01/1993, Additional history exists HPV VACCINES (1 - 3-dose SCD M series) 2016 PAP SMEAR 03/21/2019 03/21/2016, 0603/2016, 07/16/2007 CERVICAL CANCER SCREENING 03/21/2021 HPV/Cotest (21-29) 03/21/2021 03/21/2016 HPV/Cotest (30-65) 03/21/2021 03/21/2016 INFLUENZA VACCINE (#1) 2025 HEPATITIS B VACCINES Completed 01/12/2000, 10/22/1998, 06/05/1998 Procedures Procedure Name Priority Date/Time Associated Diagnosis Comments CERV/VAG CYTOPATH, THIN PREP IMAGR RFLX HPV Routine 03/21/2016 9:26 AM CDT Screening for malignant neoplasm of cervix Well woman exam with routine gynecological exam from Last 3 Months or Most Recently Relevant to Health Maintenance Results * CERV/VAG CYTOPATH, THIN PREP IMAGR RFLX HPV (03/21/2016 9:26 AM CDT) CASE REPORT Gynecologic Cytology Report Case: [id number] Authorizing Provider: Lilian Thurman MD Collected: 03/21/201626 Ordering Location: [facility] Received: 03/23/2016 0926 First Screen: Brigitte Freedman Specimen: LB PAP IM W/RFLX HPV PROT, Endocervix 03/31/2016 9:15 AM CDT [facility] Rn Internal Medicine Specimen Adequacy Satisfactory for evaluation, endocervical/urena sformation zone component absent 03/31/2016 9:15 AM CDT [facility] Rn Internal Medicine General Categorization Negative For Intraepithelial Lesion Or Malignancy 03/31/2016 9:15 AM CDT [facility] Rn Internal Medicine Interpretation Negative For Intraepithelial Lesion Or Malignancy 03/31/2016 9:15 AM CDT [facility] Verified by Brigitte Freedman on 03/31/2016 at 0915 CDT Comment: Routine follow-up is suggested. Rn Internal Medicine Educational Note 03/31/2016 9:15 AM CDT [facility] Comment: Gynecological cytology is a screening procedure subject to both false negative and false positive results. It is most reliable when a satisfactory sample is obtained on a regular repetitive basis. Results must be interpreted in the context of historic and current clinical information. Recommend patient management according to the 2012 ASCCP Consensus Guidelines, ([place]: Cancer J Clin, 62(3); 147-172,2012) EMBEDDED IMAGE 03/31/2016 9:15 AM T [facility] Endocervical SWAB OF ENDOCERVIX / Unknown 03/21/2016 9:26 AM CDT 03/23/2016 9:26 AM CDT Lilian Thurman MD PATHOLOGY/CYTOLOGY ORDERA BLES Final Result [facility] CLIA# [id number] Critical access hospital[address] [place] [address] from Last 3 Months or Most Recently Relevant to Health Maintenance Insurance [place]ICAID [place] Care Teams Vp Of Customer Experience Strategy Relationship Specialty Start Date End Date Henrry Soares MD PCP - General 03/06/08
--- OUTSIDE RECORDS SUMMARY | 2025-08-19 19:08 | XMS_ITS | Encounter Summary ---
Author Organization [facility] Address [address] [place] [address] Care Team Providers Care Microwave Oven Assembler Name Role Phone Henrry Soares MD Primary Care Provider [phone] Encounter Details Date Type Department Care Team (Latest Contact Info) Description 10/01/[address] [phone] Monik Umanzor MD [address] [place] [address], [address] ACUTE PHARYNGITIS (Primary Dx) Social History Tobacco Use Types Packs/Day Years Used Date Smoking Tobacco: Never Assessed Comments Unknown Sex and Gender Information Value Date Recorded Sex Assigned at Not on file Legal Sex Female 6:13 AM 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
--- OUTSIDE RECORDS SUMMARY | 2025-08-19 19:08 | XMS_ITS | Encounter Summary ---
Author Organization [facility] Address [address] [place] [address] Care Team Providers Care Forklift Mechanic Name Role Phone Henrry Soares MD Primary Care Provider Encounter Details Date Type Department Care Team (Latest Contact Info) Description 01/08/2002 Outpatient [facility] Medicine[address] [phone] Saul Rizzo MD [address] [phone] NEUROTIC DEPRESSION (Primary Dx) Social History Tobacco Use Types Packs/Day Years Used Date Smoking Tobacco: Never Assessed Comments Unknown Sex and Gender Information Value Date Recorded Sex Assigned at Not on file Legal Sex Female 6:13 AM MANAGER CLINICAL RESEARCH Gender Identity Not on file Sexual Orientation Not on file documented as of this encounter Plan of Treatment Not on file documented as of this encounter Visit Diagnoses Diagnosis Dysthymic disorder- Primary documented in this encounter Care Teams Forklift Mechanic Relationship Specialty Start Date End Date Henrry Soares MD PCP - General 03/06/08 documented as of this encounter
--- OUTSIDE RECORDS SUMMARY | 2025-08-19 19:08 | XMS_ITS | Encounter Summary ---
Author Organization [facility] Address [address] [place] [address] Care Team Providers Care Textiles Sales Representative Name Role Phone Henrry Soares MD Primary Care Provider Encounter Details Date Type Department Care Team (Latest Contact Info) Description 02/12/2002 Outpatient [facility] [address] [phone] Saul Rizzo MD [address] [phone] NEUROTIC DEPRESSION (Primary Dx) Social History Tobacco Use Types Packs/Day Years Used Date Smoking Tobacco: Never Assessed Comments Unknown Sex and Gender Information Value Date Recorded Sex Assigned at Not on file Legal Sex Female 6:13 AM CRUSHER WET GROUND MICA Gender Identity Not on file Sexual Orientation Not on file documented as of this encounter Plan of Treatment Not on file documented as of this encounter Visit Diagnoses Diagnosis Dysthymic disorder- Primary documented in this encounter Care Teams Textiles Sales Representative Relationship Specialty Start Date End Date Henrry Soares MD PCP - General 03/06/08 documented as of this encounter
--- OUTSIDE RECORDS SUMMARY | 2025-08-19 19:08 | XMS_ITS | Encounter Summary ---
Author Organization [facility] Address [address] [place] [address] Care Team Providers Care Toxics Program Officer Name Role Phone Henrry Soares MD Primary Care Provider Encounter Details Date Type Department Care Team (Latest Contact Info) Description 11/05/2002 Outpatient Historical [facility] Medicine [place] [address] [phone] Henrry Soares MD [address] [place] [phone] OTITIS MEDIA NOS (Primary Dx) Social History Tobacco Use Types Packs/Day Years Used Date Smoking Tobacco: Never Assessed Comments Unknown Sex and Gender Information Value Date Recorded Sex Assigned at Not on file Legal Sex Female 6:13 AM 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
--- OUTSIDE RECORDS SUMMARY | 2025-08-19 19:08 | XMS_ITS | Encounter Summary ---
Author Organization [facility] Address [address] [place] [address] Care Team Providers Care Staff Nurse Anesthetist Name Role Phone Henrry Soares MD Primary Care Provider [phone] Encounter Details Date Type Department Care Team (Latest Contact Info) Description 05/24/2002 Outpatient Historical [address] [phone] Saul Rizzo MD [address] [phone] AFFECTIVE PSYCHOSES NEC (CMS/HCC) (Primary Dx) Social History Tobacco Use Types Packs/Day Years Used Date Smoking Tobacco: Never Assessed Comments Unknown Sex and Gender Information Value Date Recorded Sex Assigned at Not on file Legal Sex Female 6:13 AM 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
--- OUTSIDE RECORDS SUMMARY | 2025-08-19 19:08 | XMS_ITS | Encounter Summary ---
Author Organization [facility] Address [address] [place] [address] Care Team Providers Care Founder Chairman And Chief Creative Officer Name Role Phone Henrry Soares MD Primary Care Provider Encounter Details Date Type Department Care Team (Latest Contact Info) Description 01/14/[address] [phone] Monik Umanzor MD [address], [address] NEUROTIC DEPRESSION (Primary Dx) Social History Tobacco Use Types Packs/Day Years Used Date Smoking Tobacco: Never Assessed Comments Unknown Sex and Gender Information Value Date Recorded Sex Assigned at Not on file Legal Sex Female 6:13 AM SHORTAGE WORKER Gender Identity Not on file Sexual Orientation Not on file documented as of this encounter Plan of Treatment Not on file documented as of this encounter Visit Diagnoses Diagnosis Dysthymic disorder- Primary documented in this encounter Care Teams Founder Chairman And Chief Creative Officer Relationship Specialty Start Date End Date Henrry Soares MD PCP - General 03/06/08 documented as of this encounter
--- OUTSIDE RECORDS SUMMARY | 2025-08-19 19:08 | XMS_ITS | Encounter Summary ---
Author Organization [facility] Address [address] [place] [address] Care Team Providers Care Custom Bike Builder Name Role Phone Henrry Soares MD Primary Care Provider Encounter Details Date Type Department Care Team (Latest Contact Info) Description 07/11/[address] [facility] [address] [phone] Henrry Soares MD [address] [place] [phone] Affective Personality (CMS/HCC) (Primary Dx) Social History Tobacco Use Types Packs/Day Years Used Date Smoking Tobacco: Never Assessed Comments Unknown Sex and Gender Information Value Date Recorded Sex Assigned at Not on file Legal Sex Female 6:13 AM DIVERSITY SPECIALIST Gender Identity Not on file Sexual Orientation Not on file documented as of this encounter Plan of Treatment Not on file documented as of this encounter Visit Diagnoses Diagnosis Bipolar I disorder, most recent episode (or current) unspecified (CMS/HCC)- Primary Bipolar I disorder, most recent episode (or current) unspecified documented in this encounter Care Teams Custom Bike Builder Relationship Specialty Start Date End Date Henrry Soares MD PCP - General 03/06/08 documented as of this encounter
--- OUTSIDE RECORDS SUMMARY | 2025-08-19 19:08 | XMS_ITS | Encounter Summary ---
Author Organization [facility] Address [address] [place] [address] Care Team Providers Care Supervisor Paper Products Name Role Phone Henrry Soares MD Primary Care Provider [phone] Encounter Details Date Type Department Care Team (Latest Contact Info) Description 10/24/2006 Outpatient Historical [facility] [address] [phone] Henrry Soares MD [address], [place] [phone] Affective Personality (CMS/HCC) (Primary Dx) Social History Tobacco Use Types Packs/Day Years Used Date Smoking Tobacco: Never Assessed Comments Unknown Sex and Gender Information Value Date Recorded Sex Assigned at Not on file Legal Sex Female 6:13 AM MALE MODEL Gender Identity Not on file Sexual Orientation Not on file documented as of this encounter Plan of Treatment Not on file documented as of this encounter Visit Diagnoses Diagnosis Bipolar I disorder, most recent episode (or current) unspecified (CMS/HCC)- Primary Bipolar I disorder, most recent episode (or current) unspecified documented in this encounter Care Teams Supervisor Paper Products Relationship Specialty Start Date End Date Henrry Soares MD PCP - General 03/06/08 documented as of this encounter
--- OUTSIDE RECORDS SUMMARY | 2025-08-19 19:08 | XMS_ITS | Encounter Summary ---
Author Organization [facility] Address [address] [place] [address] Care Team Providers Care Theatrical Dresser Name Role Phone Henrry Soares MD Primary Care Provider [phone] Encounter Details Date Type Department Care Team (Latest Contact Info) Description 03/29/2007 Outpatient Historical [facility] [address] [phone] Henrry Soares MD [address] [place] [phone] Urinary Tract Infection, Site not Specified (Primary Dx) Social History Tobacco Use Types Packs/Day Years Used Date Smoking Tobacco: Never Assessed Comments Unknown Sex and Gender Information Value Date Recorded Sex Assigned at Not on file 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
--- OUTSIDE RECORDS SUMMARY | 2025-08-19 19:08 | XMS_ITS | Encounter Summary ---
Author Organization [facility] Address [address] [place] [address] Care Team Providers Care Ward Supervisor Name Role Phone Henrry Soares MD Primary Care Provider [phone] Encounter Details Date Type Department Care Team (Latest Contact Info) Description 06/21/2007 Outpatient Historical [facility] [place] [address] [phone] Henrry Soares MD [address] [place] [phone] Acute Bronchitis (Primary Dx) Social History Tobacco Use Types Packs/Day Years Used Date Smoking Tobacco: Never Assessed Comments Unknown Sex and Gender Information Value Date Recorded Sex Assigned at Not on file 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
--- OUTSIDE RECORDS SUMMARY | 2025-08-19 19:08 | XMS_ITS | Encounter Summary ---
Author Organization [facility] Address [address] [place] [address] Care Team Providers Care Flat Polisher Name Role Phone Henrry Soares MD Primary Care Provider Encounter Details Date Type Department Care Team (Latest Contact Info) Description 12/05/2006 Outpatient Historical [facility] [address] [phone] Henrry Soares MD [address] [place] [phone] Gastritis/Duodenitis (Primary Dx) Social History Tobacco Use Types Packs/Day Years Used Date Smoking Tobacco: Never Assessed Comments Unknown Sex and Gender Information Value Date Recorded Sex Assigned at Not on file 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
--- OUTSIDE RECORDS SUMMARY | 2025-08-19 19:08 | XMS_ITS | Encounter Summary ---
Author Organization [facility] Address [address] [place] [address] Care Team Providers Care Creative Writer Name Role Phone Henrry Soares MD Primary Care Provider [phone] Encounter Details Date Type Department Care Team (Latest Contact Info) Description 01/31/2002 Outpatient [facility] [address] [phone] Saul Rizzo MD [address] [phone] NEUROTIC DEPRESSION (Primary Dx) Social History Tobacco Use Types Packs/Day Years Used Date Smoking Tobacco: Never Assessed Comments Unknown Sex and Gender Information Value Date Recorded Sex Assigned at Not on file Legal Sex Female 6:[address]IGHT CONDUCTOR Gender Identity Not on file Sexual Orientation Not on file documented as of this encounter Plan of Treatment Not on file documented as of this encounter Visit Diagnoses Diagnosis Dysthymic disorder- Primary documented in this encounter Care Teams Creative Writer Relationship Specialty Start Date End Date Henrry Soares MD PCP - General 03/06/08 documented as of this encounter
--- OUTSIDE RECORDS SUMMARY | 2025-08-19 19:08 | XMS_ITS | Encounter Summary ---
Author Organization [facility] Address [address] [place] [address] Care Team Providers Care Nicu Rn Name Role Phone Henrry Soares MD Primary Care Provider Encounter Details Date Type Department Care Team (Latest Contact Info) Description 01/08/2007 Outpatient Historical [facility] [address] [phone] Henrry Soares MD [address] [place] [phone] Attention Deficit Disorder without Mention of Hyperactivity (Primary Dx) Social History Tobacco Use Types Packs/Day Years Used Date Smoking Tobacco: Never Assessed Comments Unknown Sex and Gender Information Value Date Recorded Sex Assigned at Not on file 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
--- OUTSIDE RECORDS SUMMARY | 2025-08-19 19:08 | XMS_ITS | Encounter Summary ---
Author Organization [facility] Address [address] [place] [address] Care Team Providers Care Brewer Helper Name Role Phone Henrry Soares MD Primary Care Provider [phone] Encounter Details Date Type Department Care Team (Latest Contact Info) Description 01/30/2002 Outpatient [facility] [address] [phone] Saul Rizzo MD [address] [phone] NEUROTIC DEPRESSION (Primary Dx) Social History Tobacco Use Types Packs/Day Years Used Date Smoking Tobacco: Never Assessed Comments Unknown Sex and Gender Information Value Date Recorded Sex Assigned at Not on file 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
--- OUTSIDE RECORDS SUMMARY | 2025-08-19 19:08 | XMS_ITS | Encounter Summary ---
Author Organization [facility] Address [address] [place] [address] Care Team Providers Care Manager Merchandising Name Role Phone Henrry Soares MD Primary Care Provider Encounter Details Date Type Department Care Team (Latest Contact Info) Description 04/09/2002 Outpatient [facility] [address] [phone] Saul Rizzo MD [address] [phone] NEUROTIC DEPRESSION (Primary Dx) Social History Tobacco Use Types Packs/Day Years Used Date Smoking Tobacco: Never Assessed Comments Unknown Sex and Gender Information Value Date Recorded Sex Assigned at Not on file 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
--- OUTSIDE RECORDS SUMMARY | 2025-08-19 19:08 | XMS_ITS | Encounter Summary ---
Author Organization [facility] Address [address] [place] [address] Care Team Providers Care Aws Solution Architect Name Role Phone Henrry Soares MD Primary Care Provider Encounter Details Date Type Department Care Team (Latest Contact Info) Description 11/20/2006 Outpatient Historical [facility] [address] [phone] Samuel Bush, FIVE ROLL REFINER BATCH MIXER [address] [place] [address] Acute Pharyngitis (Primary Dx) Social History Tobacco Use Types Packs/Day Years Used Date Smoking Tobacco: Never Assessed Comments Unknown Sex and Gender Information Value Date Recorded Sex Assigned at Not on file Legal Sex Female 6:13 AM FORGING ROLL OPERATOR Gender Identity Not on file Sexual Orientation Not on file documented as of this encounter Plan of Treatment Not on file documented as of this encounter Visit Diagnoses Diagnosis Acute pharyngitis- Primary documented in this encounter Care Teams Aws Solution Architect Relationship Specialty Start Date End Date Henrry Soares MD PCP - General 03/06/08 documented as of this encounter
[2025-08-19 19:35] LABS: Hematocrit 35.8 % (36-47); Hemoglobin 12.30 g/dL (11.27-16.99); Mean Corpuscular HGB Conc 34.4 g/dL (30-55); Mean Corpuscular Hemoglobin 29.9 pg (27-33); Mean Corpuscular Volume 86.9 fl (85-98); Nucleated Red Blood Cells % 0 %; Platelet Count 249 10^3/cmm (157-399); Red Blood Count 4.12 10^6/uL (3.85-5.65); White Blood Count 10.28 10^3/uL (3.29-11.43)
[2025-08-19 19:38] LABS: Ketone (Acetest) Serum Negative (Negative)
[2025-08-19 20:00] LABS: Alanine Aminotransferase 48 U/L (0-33); Albumin Level 3.7 g/dL (3.5-5.2); Alkaline Phosphatase 139 U/L (35-105); Anion Gap 15.9 (5-19); Aspartate Amino Transferase 40 U/L (0-32); Blood Urea Nitrogen 10 mg/dL (6-20); Calcium 8.6 mg/dL (8.5-10.5); Carbon Dioxide 22 mmol/L (22-29); Chloride 95 mmol/L (98-107); Creatinine Clr Calc Pharmacy 166.4975; Globulin 3.1 g/dL (1.3-4.6); Osmolality Calculated 291 mOsm/kg (285-295); Potassium 3.9 mmol/L (3.5-5.1); Salicylate 0.4 mg/dL (3-10); Sodium 129 mmol/L (136-145); Thyroid Stimulating Hormone 4.17 uIU/mL (0.27-4.20); Total Protein 6.8 g/dL (6.6-8.7)
[2025-08-19 20:03] LABS: Acetaminophen < 5.0 ug/mL (10-30); Alcohol Level < 10 mg/dL (0-10); Glucose 522 mg/dL (65-115)
[2025-08-19] MEDS: insulin regular-human 100 units/1 mL 12 UNIT IVP (20:16)
[2025-08-19] MEDS: LORazepam 2 mg/mL INJ 1 mL IVP (20:37)
--- NOTE | 2025-08-19 20:37 | PC.NURSE ---
per dr zapata, pt is receiving 2 liters of NS IV and 12 units of insulin IVP. if pts BG is under 350 after that, pt can go to floor. if not, standing orders to give another liter of NS IV and 15 units of insulin IVP.
[2025-08-19 21:24] LABS: Glucose Urine UA 3+ (Normal); HCG Qualitative Urine. Negative (Negative); Nitrate Urine Negative (Negative)
[2025-08-19 21:29] LABS: Add Urine Microscopic? YES
[2025-08-19 21:30] LABS: PCP Screen Urine Negative (Negative)
[2025-08-19 21:48] LABS: Specific Gravity, Urine 1.042 (1.005-1.030)
--- NOTE | 2025-08-19 21:49 | PC.NURSE ---
[facility] Pt served with copy of 96 [facility] by this RN and security. Pt sleepy and unable to keep eyes open during conversation. Pt stated Where's my dad? . No questions regarding hold.
--- NOTE | 2025-08-19 22:07 | PM.CONSULT ---
Providers/Reason For Consult Consulting Physician/Specialty*: PATIENCE RTU DO Reason for Consult*: Medical management for hyperglycemia Requesting Physician: Dr. Navid Arango Attending Physician: Nba Shoemaker MD Primary Care Provider: RAE Adkins History of Present Illness History of Present Illness Sandy Figueroa is a 35 year old female with medical history significant for diabetes type 2 who presented to the emergency room with psychosis and had to be admitted to psychiatric service. Patient blood sugar upon arrival was 500. Patient received 2-1/2 L of saline boluses and 10 units of insulin bolus and then subcutaneous insulin of 12 units. Patient blood sugar had nicely come down to 211 Patient home regimen can be continued but there is a concern that the insulin wears off frequent and the level of compliance may become an issue. Patient takes NPH with some units of insulin 4 times a day and multiple other insulins including the Lantus 20 units at bedtime When patient left the emergency room blood glucose was 211 and in the psych miranda at 4 AM it was 360 and they had not given the patient any insulin since after emergency room care. I am ordering some insulin for the patient. This patient has multiple insulin in the medication regimen for home and nobody can tell which one is current I have spoken with the staff to call the patient's pharmacy and tease this all in. At this time I am going to be giving patient Lantus 20 units at bedtime lispro 10 units at meals AC Review of Systems Narrative: System review upon tenogram review we are entirely unremarkable. Medications/Allergies Home Medications ?Medication ?Instructions ?Recorded ?Confirmed ?Last Taken ?Type albuterol sulfate 90 mcg/actuation 2 inh inhalation Q6H PRN 05/01/25 08/12/25 Unknown History breath activated powder inhaler aripiprazole 15 mg tablet (Abilify) 15 mg PO DAILY 30 days #30 tabs 05/01/25 08/12/25 Unknown Rx celecoxib 200 mg capsule (Celebrex) 200 mg PO BID 05/01/25 08/12/25 Unknown History cholecalciferol (vitamin D3) 125 125 mcg PO DAILY 05/01/25 08/12/25 Unknown History mcg (5,000 unit) capsule dicyclomine 10 mg capsule 10 mg PO QID 05/01/25 08/12/25 Unknown History famotidine 20 mg tablet (Pepcid) 20 mg PO BID 05/01/25 08/12/25 Unknown History glipizide 5 mg tablet 5 mg PO DAILY 05/01/25 08/12/25 Unknown History hydroxyzine HCl 25 mg tablet 25 mg PO DAILY PRN 05/01/25 08/12/25 Unknown History insulin NPH isoph U-100 human 100 20 unit SUBCUT QID 05/01/25 08/12/25 Unknown History unit/mL (3 mL) subcutaneous pen (Novolin N FlexPen) insulin glargine 100 unit/mL 10 unit SUBCUT .at bed 05/01/25 08/12/25 Unknown History subcutaneous solution (Lantus U-100 Insulin) labetalol 200 mg tablet 100 mg PO BID 05/01/25 08/12/25 Unknown History lactulose 10 gram/15 mL oral 10 g PO BID 05/01/25 08/12/25 Unknown History solution lamotrigine 150 mg tablet 150 mg PO BID 30 days #60 tabs 05/01/25 08/12/25 Unknown Rx medroxyprogesterone 150 mg/mL mg IM 05/01/25 08/12/25 Unknown History intramuscular syringe (Depo-Provera) naltrexone 50 mg tablet 50 mg PO DAILY 05/01/25 08/12/25 Unknown History simvastatin 40 mg tablet 40 mg PO DAILY 05/01/25 08/12/25 Unknown History vitamin B complex 1 cap PO DAILY 05/01/25 08/12/25 Unknown History paliperidone palmitate 234 mg/1.5 234 mg (1.5 mL) IM Q30D 30 days 05/16/25 08/12/25 Unknown Rx mL intramuscular syringe (Invega #1.5 mL Sustenna) gabapentin 100 mg capsule 200 mg (2 x 100 mg) PO BID #120 07/29/25 08/12/25 Unknown Rx caps semaglutide 1 mg/dose (4 mg/3 mL) mg SUBCUT 07/29/25 08/12/25 Unknown History subcutaneous pen injector (Ozempic) Allergies Allergy/AdvReac Type Severity Reaction Status Date / Time No Known Allergies Allergy Verified 08/12/25 14:39 PFSH Acute PFSH: Medical History Methamphetamine use disorder, moderate, in sustained remission Cannabis use disorder Alcohol use disorder, moderate, in early remission Psychiatric care Family History Other Diabetes Social History Smoking and tobacco/nicotine status: current every day tobacco/nicotine user cigarettes Years cigarettes smoked: 23 [ Other cigarette details: 2 cigs daily] and e-cigarettes E-Cigarette Details: e-cigarette and with nicotine E-cig/vape details: last about a week Quit status (tobacco/nicotine): not considering quitting Second hand smoke exposure: No Alcohol intake: former Former alcohol use details: sometimes Substance/Drug Use: current Substance/Drug use frequency: daily Other substance/drug use details: meth quit 12 years ago Adopted: No Caregiver/support person: Yes (Father is her guardian) Lives independently: Yes Household members: other Details: father is close by Housing: Apartment Marital status: Single Number of children: 0 Highest education level completed: High School Graduate service: No Current occupational status: disabled Pets and animals: No Leisure activites: other Leisure activities details: watch TV, sit outside Sexually active: No Do you think of yourself as: Straight/Heterosexual Current gender identity: Female Suad/Scientologist: Jewish Special suad needs: No Agree to transfusion: Yes Female Reproductive History: Para: 0 Spontaneous abortions: Yes Vitals/I&O/Wt Last Vital Signs Temp 98.0 F 08/19/25 18:31 Pulse 105 H 08/19/25 18:31 Resp 18 08/19/25 18:31 BP 134/81 08/19/25 18:31 Pulse Ox 96 08/19/25 18:31 O2 Del Method Room Air 08/19/25 18:31 Weight last 48 hrs Weight 77.111 kg Physical Exam Narrative: General the patient is not relaxed and sleeping HEENT normocephalic atraumatic neck neck is supple cardiovascular heart is regular lungs are pretty much clear abdomen soft nontender nondistended unremarkable extremities are intact no edema has good pulses neurology has no focality lab studies lab studies reviewed and noted. Data 08/19/25 19:10 08/19/25 22:47 A&P Assessment and plan 1. Hyperglycemia: 2. Acute psychosis: 3. Methamphetamine use disorder, moderate, in sustained remission: 4. Diabetes mellitus: 5. Cannabis use disorder: 6. Alcohol use disorder, moderate, in early remission: 7. Substance abuse: Plan: Hyperglycemia 519 at presentation - Upon completion of care in the emergency room blood sugar came down to 211. - Patient is primary psych - Hospitalist consult for medical management reference hyperglycemia management - There are multiple insulins 1 has to be careful - I have initiated patient on Lantus 20 units at bedtime, lispro 10 units at meals AC and sliding scale insulin coverage low protocol I have also ordered hemoglobin A1c. Update all medication via pharmacy outpatient to know exactly what patient is taking Psychosis - I deferred care to this psychiatrist GI and DVT prophylaxis in place I appreciate you for allowing me to participate in the care of your patient PDMP PDMP Reviewed: Not Reviewed Coding Level of Care Code 78048 Diagnoses Hyperglycemia R73.9 Acute psychosis F23 Methamphetamine use disorder, moderate, in sustained remission F15.21 Diabetes mellitus E11.9 Cannabis use disorder F12.90 Alcohol use disorder, moderate, in early remission F10.21 Substance abuse F19.10 Time Spent (min) 60
[2025-08-19 22:24] VITALS: BP 120/75; PULSE 109; RESP 16; O2SAT 91
[2025-08-19 23:08] VITALS: BP 133/93; PULSE 115; RESP 17; TEMP 36.6; O2SAT 93
[2025-08-19 23:18] LABS: Alanine Aminotransferase 45 U/L (0-33); Albumin Level 3.5 g/dL (3.5-5.2); Alkaline Phosphatase 117 U/L (35-105); Anion Gap 15.1 (5-19); Aspartate Amino Transferase 39 U/L (0-32); Blood Urea Nitrogen 8 mg/dL (6-20); Calcium 8.0 mg/dL (8.5-10.5); Carbon Dioxide 20 mmol/L (22-29); Chloride 101 mmol/L (98-107); Globulin 2.5 g/dL (1.3-4.6); Glucose 279 mg/dL (65-115); Magnesium 1.9 mg/dL (1.7-2.3); Osmolality Calculated 282 mOsm/kg (285-295); Potassium 4.1 mmol/L (3.5-5.1); Sodium 132 mmol/L (136-145); Total Protein 6.0 g/dL (6.6-8.7)
[2025-08-19 23:27] VITALS: BP 133/93; PULSE 115; RESP 17; TEMP 36.6; O2SAT 93
[2025-08-19 23:27] LABS: Estmated Average Glucose 232; Hemoglobin A1C 9.7 % (4.0-6.0)
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
[2025-08-20 06:00] VITALS: BP 164/96; PULSE 95; RESP 18; TEMP 36.3; O2SAT 97
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
--- NOTE | 2025-08-20 08:33 | US_ITS ---
WS: [id number] ULTRASOUND RENAL TECHNIQUE: Ultrasound examination of both kidneys. CLINICAL INFORMATION: ottoniel COMPARISON: None. FINDINGS: RIGHT: Right kidney is normal in size and appearance. Echogenicity: Normal. Cortical thickness: 1.1 cm; Normal. Hydronephrosis: None. Perinephric fluid: None. Right kidney measures: 11.6 cm x 5.1 cm x 5.1 cm. LEFT: Left kidney is normal in size and appearance. Echogenicity: Normal. Cortical thickness: 1.5 cm; Normal. Hydronephrosis: None. Perinephric fluid: None. Left kidney measures: 10.7 cm x 5.6 cm x 5.8 cm. Normal visualized aorta. Normal bladder US/US renal BI* [id number] IMPRESSION: 1. Normal renal ultrasound. 2. Normal bladder.
[2025-08-20 09:16] LABS: Hematocrit 37.3 % (36-47); Hemoglobin 13.00 g/dL (11.27-16.99); Mean Corpuscular HGB Conc 34.9 g/dL (30-55); Mean Corpuscular Hemoglobin 30.0 pg (27-33); Mean Corpuscular Volume 86.1 fl (85-98); Nucleated Red Blood Cells % 0 %; Platelet Count 264 10^3/cmm (157-399); Red Blood Count 4.33 10^6/uL (3.85-5.65); White Blood Count 6.17 10^3/uL (3.29-11.43)
[2025-08-20] MEDS: insulin glargine 100 units/1 mL 10 UNIT SUBCUT ×2 (09:18→21:17)
[2025-08-20 09:38] LABS: Alanine Aminotransferase 44 U/L (0-33); Albumin Level 3.7 g/dL (3.5-5.2); Alkaline Phosphatase 116 U/L (35-105); Anion Gap 14.2 (5-19); Aspartate Amino Transferase 31 U/L (0-32); Blood Urea Nitrogen 7 mg/dL (6-20); Calcium 8.6 mg/dL (8.5-10.5); Carbon Dioxide 22 mmol/L (22-29); Chloride 100 mmol/L (98-107); Globulin 2.8 g/dL (1.3-4.6); Glucose 330 mg/dL (65-115); Magnesium 2.0 mg/dL (1.7-2.3); Osmolality Calculated 285 mOsm/kg (285-295); Potassium 4.2 mmol/L (3.5-5.1); Sodium 132 mmol/L (136-145); Total Protein 6.5 g/dL (6.6-8.7)
[2025-08-20 09:46] LABS: Procalcitonin 0.08 ng/mL (0-0.5)
[2025-08-20 09:55] LABS: Hepatitis A Antibody IgM Non-Reactive (Nonreactive); Hepatitis B Surface Antigen Non-Reactive (Nonreactive)
[2025-08-20 09:58] LABS: HIV 1 & 2 Antigen Non-Reactive (Non-Reactiv)
[2025-08-20 10:09] LABS: Ferritin 221 ng/mL (15-150); Iron 55 ug/dL (37-145); Total Iron Binding Capacity 245 mcg/dl; Unsaturated Iron Binding 190 ug/dL (112-347)
[2025-08-20] MEDS: cefTRIAXone 1,000 mg SDV 1000 MG IVP (11:49)
[2025-08-20 12:11] VITALS: BP 141/91; PULSE 84; RESP 16; TEMP 36.7; O2SAT 96
--- NOTE | 2025-08-20 13:20 | P.PN_ITS ---
Subjective 2 Subjective: Patient was seen this morning, she does not feel well, has complaints of fatigue, malaise, no shortness of breath, Vitals/I&O/Wt Last Vital Signs Temp 98.0 F 08/20/25 12:11 Pulse 84 08/20/25 12:11 Resp 16 08/20/25 12:11 BP 141/91 08/20/25 12:11 Pulse Ox 96 08/20/25 12:11 O2 Del Method Room Air 08/20/25 12:11 08/19/25 08/20/25 08/20/25 22:59 06:59 14:59 Intake Total 1999 Balance 1999 Weight last 48 hrs Weight 77.111 kg Physical Exam 2 Const: COMMON NORMALS: no acute distress and patient oriented x3 Resp: COMMON NORMALS: normal respiratory effort, No retractions, No use of accessory muscles and clear to auscultation bilaterally AUSCULTATION: clear to auscultation bilaterally Cardio: COMMON NORMALS: regular rate, regular rhythm, S1 normal heart sound present and S2 normal heart sound present RATE: regular rate RHYTHM: r egular rhythm HEART SOUNDS: S1 normal heart sound present and S2 normal heart sound present GI: COMMON NORMALS: Normal to inspection, nondistended, normoactive bowel sounds present and non-tender Extremity: COMMON NORMALS: no pedal edema Neuro: COMMON NORMALS: patient oriented x3 Psych: COMMON NORMALS: mental status grossly normal Skin: NARRATIVE SKIN EXAM: Left flank, Data 08/20/25 08:57 08/20/25 08:57 Micro: Microbiology 08/20/25 08:57 Blood Culture - Preliminary Blood SPECIMEN COLLECTED 08/20/25 08:57 Blood Culture - Preliminary Blood SPECIMEN COLLECTED A&P Assessment and plan 1. Hyperglycemia: 2. Diabetes mellitus: 3. UTI (urinary tract infection): Plan: Urinary tract infection - Renal ultrasound - IV Rocephin Type 2 diabetes mellitus - Lantus 10 units twice daily - Moderate dose insulin sliding scale PDMP PDMP Reviewed: Not Reviewed Attestations 2 Medical Necessity Statement*: Patient requires hospitalization for hypoglycemia, urinary tract infection Diagnoses Hyperglycemia R73.9 Diabetes mellitus E11.9 UTI (urinary tract infection) N39.0
[2025-08-20 16:11] VITALS: BP 133/92; PULSE 104; RESP 17; TEMP 36.4; O2SAT 95
[2025-08-20 20:00] VITALS: BP 138/88; PULSE 96; RESP 17; TEMP 36.7; O2SAT 99
[2025-08-21] VITALS: BP 161/97; PULSE 84; RESP 16; TEMP 36.5; O2SAT 95
[2025-08-21 04:00] VITALS: BP 167/97; PULSE 80; RESP 16; TEMP 36.8; O2SAT 98
[2025-08-21 06:24] LABS: Hematocrit 39.3 % (36-47); Hemoglobin 13.40 g/dL (11.27-16.99); Mean Corpuscular HGB Conc 34.1 g/dL (30-55); Mean Corpuscular Hemoglobin 29.1 pg (27-33); Mean Corpuscular Volume 85.2 fl (85-98); Nucleated Red Blood Cells % 0 %; Platelet Count 289 10^3/cmm (157-399); Red Blood Count 4.61 10^6/uL (3.85-5.65); White Blood Count 6.41 10^3/uL (3.29-11.43)
[2025-08-21 06:40] LABS: Magnesium 2.0 mg/dL (1.7-2.3)
[2025-08-21 06:41] LABS: Alanine Aminotransferase 53 U/L (0-33); Albumin Level 4.0 g/dL (3.5-5.2); Alkaline Phosphatase 116 U/L (35-105); Anion Gap 15.8 (5-19); Aspartate Amino Transferase 39 U/L (0-32); Blood Urea Nitrogen 6 mg/dL (6-20); Calcium 8.8 mg/dL (8.5-10.5); Carbon Dioxide 22 mmol/L (22-29); Chloride 100 mmol/L (98-107); Creatinine Clr Calc Pharmacy 166.4975; Globulin 2.6 g/dL (1.3-4.6); Glucose 310 mg/dL (65-115); Osmolality Calculated 287 mOsm/kg (285-295); Potassium 3.8 mmol/L (3.5-5.1); Sodium 134 mmol/L (136-145); Total Protein 6.6 g/dL (6.6-8.7)
[2025-08-21 07:49] VITALS: BP 154/96; PULSE 77; RESP 16; TEMP 36.6; O2SAT 99
--- NOTE | 2025-08-21 08:26 | PC.PHAR ---
Pt verified her remaining medications not confirmed at admission. Pt hesitant to answer but I did update all that she stated she should be taking.
[2025-08-21] MEDS: insulin glargine 100 units/1 mL 15 UNIT SUBCUT ×2 (08:57→20:49)
[2025-08-21] MEDS: cefTRIAXone 1,000 mg SDV 1000 MG IVP (08:57)
[2025-08-21 11:10] VITALS: BP 150/86; PULSE 86; RESP 16; TEMP 36.6; O2SAT 97
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
--- NOTE | 2025-08-21 13:50 | P.PN_ITS ---
Subjective 2 Subjective: Patient was alert oriented x 3, following all commands, no flank pain, no dysuria Vitals/I&O/Wt Last Vital Signs Temp 97.8 F 08/21/25 11:10 Pulse 86 08/21/25 11:10 Resp 16 08/21/25 11:10 BP 150/86 08/21/25 11:10 Pulse Ox 97 08/21/25 11:10 O2 Del Method Room Air 08/21/25 11:10 08/20/25 08/21/25 08/21/25 22:59 06:59 14:59 Intake Total / 1959 Output Total 300 / 300 Balance / 1959 Weight last 48 hrs Weight 77.111 kg Physical Exam 2 Const: COMMON NORMALS: no acute distress and patient oriented x3 Resp: COMMON NORMALS: normal respiratory effort, No retractions, No use of accessory muscles and clear to auscultation bilaterally AUSCULTATION: clear to auscultation bilaterally Cardio: COMMON NORMALS: regular rate, regular rhythm, S1 normal heart sound present and S2 normal heart sound present RATE: regular rate RHYTHM: r egular rhythm HEART SOUNDS: S1 normal heart sound present and S2 normal heart sound present GI: COMMON NORMALS: Normal to inspection, nondistended, normoactive bowel sounds present and non-tender Extremity: COMMON NORMALS: no calf tenderness and no pedal edema Neuro: COMMON NORMALS: patient oriented x3 Psych: COMMON NORMALS: mental status grossly normal Data 08/21/25 05:55 08/21/25 05:55 Micro: Microbiology 08/20/25 08:57 Blood Culture - Preliminary Blood NEGATIVE TO DATE 08/20/25 08:57 Blood Culture - Preliminary Blood NEGATIVE TO DATE A&P Assessment and plan 1. Hyperglycemia: 2. Diabetes mellitus: 3. UTI (urinary tract infection): Plan: Urinary tract infection - Renal ultrasound no acute findings - IV Rocephin, transition to cefdinir Type 2 diabetes mellitus - Lantus 10 units twice daily - Moderate dose insulin sliding scale Will transition to neuropsychiatric unit PDMP PDMP Reviewed: Not Reviewed Attestations 2 Medical Necessity Statement*: Patient requires hospitalization for UTI, type 2 diabetes Diagnoses Hyperglycemia R73.9 Diabetes mellitus E11.9 UTI (urinary tract infection) N39.0
[2025-08-21] MEDS: LORazepam 2 mg/mL INJ 1 mL IM (14:21)
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
[2025-08-21 16:00] VITALS: BP 127/84; PULSE 84; RESP 15; O2SAT 97
--- NOTE | 2025-08-21 16:36 | PC.NURSE ---
pt yelling on phone pt went into room slamming door multiple time against the closet, yelling she does not want to be here. that she would not act this way if she was not in here. attempts to verbally deescalate pt unsuccessful code 10 called administered Haldol 5mg IM ,Ativan 2mg IM administered in left deltoid, and Benadryl 50mg IM administered in right deltoid.
[2025-08-21] MEDS: diphenhydrAMINE 50 mg/mL SDV 1mL (17:04)
[2025-08-21] MEDS: LORazepam 2 mg/mL INJ 1 mL (17:04)
[2025-08-21] MEDS: haloperidol inj 5 mg/mL INJ 1 mL (17:04)
[2025-08-21 20:00] VITALS: BP 132/91; PULSE 92; RESP 16; O2SAT 100
[2025-08-22 05:37] VITALS: BP 120/80; PULSE 86; RESP 17; TEMP 36.4; O2SAT 95
[2025-08-22 08:55] LABS: Hematocrit 38.3 % (36-47); Hemoglobin 13.10 g/dL (11.27-16.99); Mean Corpuscular HGB Conc 34.2 g/dL (30-55); Mean Corpuscular Hemoglobin 28.9 pg (27-33); Mean Corpuscular Volume 84.5 fl (85-98); Nucleated Red Blood Cells % 0 %; Platelet Count 278 10^3/cmm (157-399); Red Blood Count 4.53 10^6/uL (3.85-5.65); White Blood Count 7.49 10^3/uL (3.29-11.43)
[2025-08-22 09:13] LABS: Alanine Aminotransferase 57 U/L (0-33); Albumin Level 3.8 g/dL (3.5-5.2); Alkaline Phosphatase 110 U/L (35-105); Anion Gap 16.3 (5-19); Aspartate Amino Transferase 52 U/L (0-32); Blood Urea Nitrogen 7 mg/dL (6-20); Calcium 8.8 mg/dL (8.5-10.5); Carbon Dioxide 22 mmol/L (22-29); Chloride 100 mmol/L (98-107); Globulin 2.8 g/dL (1.3-4.6); Glucose 285 mg/dL (65-115); Magnesium 1.8 mg/dL (1.7-2.3); Osmolality Calculated 286 mOsm/kg (285-295); Potassium 4.3 mmol/L (3.5-5.1); Sodium 134 mmol/L (136-145); Total Protein 6.6 g/dL (6.6-8.7)
[2025-08-22] MEDS: insulin glargine 100 units/1 mL 15 UNIT SUBCUT ×2 (09:13→20:07)
--- NOTE | 2025-08-22 10:22 | PC.NURSE ---
pt slamming phone lump receiver multiple times against phone and wall. pt instructed to stop several times. when pt stopped after 3rd time of verbal instruction to quit pt turned and asked staff for Xanax. this staff member informed pt that the behavior was unacceptable in this unit and to use phone is a privilege to go to her room and medication would be brought to her. pt turned going to her room. pt then immediately back to nurses station crying asking where she was going to go to when she left then stated she was going to go somewhere. pt received prn medication for anxiety then went to room.
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
[2025-08-22 14:00] VITALS: BP 121/87; PULSE 104; RESP 18; TEMP 36.8; O2SAT 96
[2025-08-22 20:36] VITALS: BP 132/88; PULSE 102; RESP 17; TEMP 36.9; O2SAT 96
[2025-08-23 03:51] VITALS: BP 125/85; PULSE 74; RESP 17; TEMP 36.6; O2SAT 98
[2025-08-23] MEDS: insulin glargine 100 units/1 mL 5 UNIT SUBCUT (07:00)
[2025-08-23] MEDS: insulin glargine 100 units/1 mL 15 UNIT SUBCUT (07:32)
[2025-08-23 09:22] LABS: Alanine Aminotransferase 48 U/L (0-33); Albumin Level 4.0 g/dL (3.5-5.2); Alkaline Phosphatase 140 U/L (35-105); Anion Gap 17.3 (5-19); Aspartate Amino Transferase 26 U/L (0-32); Blood Urea Nitrogen 5 mg/dL (6-20); Calcium 9.3 mg/dL (8.5-10.5); Carbon Dioxide 22 mmol/L (22-29); Chloride 100 mmol/L (98-107); Creatinine Clr Calc Pharmacy 166.4975; Globulin 2.9 g/dL (1.3-4.6); Glucose 245 mg/dL (65-115); Osmolality Calculated 285 mOsm/kg (285-295); Potassium 4.3 mmol/L (3.5-5.1); Sodium 135 mmol/L (136-145); Total Protein 6.9 g/dL (6.6-8.7)
[2025-08-23 14:00] VITALS: BP 97/74; PULSE 90; RESP 17; TEMP 36.5; O2SAT 98
--- NOTE | 2025-08-23 14:04 | PC.NURSE ---
Pt. tearful today and having anxiety. Pt. began punching the graham. Pt. willingly took a B-52.
[2025-08-23] MEDS: haloperidol inj 5 mg/mL INJ 1 mL IM (14:08)
[2025-08-23] MEDS: LORazepam 2 mg/mL INJ 1 mL IM (14:08)
[2025-08-23] MEDS: diphenhydrAMINE 50 mg/mL SDV 1mL IM (14:08)
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
--- NOTE | 2025-08-23 15:07 | PC.NURSE ---
Pro Reeves visited pt. and gave her a debit card. The envelope had $350 written on it. The envelope and card was placed in the safe.
[2025-08-23 20:25] VITALS: BP 120/76; PULSE 89; RESP 17; TEMP 36.6; O2SAT 97
[2025-08-23] MEDS: insulin glargine 100 units/1 mL 20 UNIT SUBCUT (20:26)
[2025-08-24 06:00] VITALS: BP 156/101; PULSE 91; RESP 16; TEMP 36.5; O2SAT 98; BMI 28.3
[2025-08-24] MEDS: insulin glargine 100 units/1 mL 20 UNIT SUBCUT (07:41)
[2025-08-24] MEDS: diphenhydrAMINE 50 mg/mL SDV 1mL IM (09:37)
[2025-08-24] MEDS: haloperidol inj 5 mg/mL INJ 1 mL IM (09:38)
[2025-08-24] MEDS: LORazepam 2 mg/mL INJ 1 mL IM (09:38)
--- NOTE | 2025-08-24 09:40 | PC.NURSE ---
Patient at the nurses station verbalizing high anxiety and requesting a shot. Patient request for Dr to see her. She was previously given Geodon without any benefits observed. She has an anxious affect and is tearful. Patient received Haldol 5 mg IM, lorazepam 2 mg IM left upper arm and diphehydramine 50 mg right upper arm.
[2025-08-24] MEDS: phenyleph-mineral oil-petrolat Oint 28 gm 1 APPLIC TOPICAL (11:12)
[2025-08-24 14:00] VITALS: BP 127/73; PULSE 113; RESP 18; TEMP 36.8; O2SAT 96
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
--- NOTE | 2025-08-24 17:47 | PC.NURSE ---
Patient at the nurses station states that she believes she is . She reports seeing a head, nose and eyes on the US. She also reports feeling the baby move.Informed patient that she had a negative test on 08/19/25 and the renal US did not report a . Patient has required frequent reorienting today.
[2025-08-24] MEDS: insulin glargine 100 units/1 mL 25 UNIT SUBCUT (18:17)
[2025-08-24 20:09] VITALS: BP 120/80; PULSE 104; RESP 18; TEMP 36.6; O2SAT 95
--- NOTE | 2025-08-25 03:06 | PC.NURSE ---
BEHAVIORAL At approximately 0250 pt came up to the nurses station and asked for a Ativan shot. This nurse informed the patient that we cannot just give her am Ativan shot. The pt became irritated and started walking away. This nurse told her that we would come check on her in a minute pt then yelled back i wake up every time you guys come in there. Then walked back to her room. Pt then proceeded to slam her door and a loud bang followed. When this nurse entered the room the pt was asked if she was alright, to which she responded no i wish i could fucking sleep. This nurse then called Dr. Shoemaker and explained pts behaviors and asked for a PO b52 order. Dr. Shoemaker stated that the pt could have 1mg of Ativan PO instead of 2mg because he does not want the pt to think that she can behave this way just to get medications. Once medications were verified, this nurse and Prosper OSORIO went to pts room. Pt took medications willingly and then laid back down. Behavioral monitoring continues.
[2025-08-25 06:00] VITALS: BP 114/78; PULSE 111; RESP 17; O2SAT 98
[2025-08-25] MEDS: insulin glargine 100 units/1 mL 25 UNIT SUBCUT ×2 (07:31→18:15)
[2025-08-25 14:00] VITALS: BP 103/73; PULSE 105; RESP 20; TEMP 36.7; O2SAT 97
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
--- NOTE | 2025-08-25 15:50 | P.PN_ITS ---
Subjective 2 Subjective: Patient appears well, laying down at time of interview. She reports that she feels okay with exception of bilateral foot aches from walking the halls a lot. Patient reports she wants to stop taking psych medications including injections. Educated on need to maintain regimen. Wants to discharge home. Confirms dad is her Legal Guardian. Hospitalist Service signing off. Recommending that patient follow up with PCP after discharge. Medications: Reviewed: Yes Vitals/I&O/Wt Last Vital Signs Temp 98.0 F 08/25/25 14:00 Pulse 105 H 08/25/25 14:00 Resp 20 H 08/25/25 14:00 BP 103/73 08/25/25 14:00 Pulse Ox 97 08/25/25 14:00 O2 Del Method Room Air 08/25/25 14:00 Weight last 48 hrs Weight 82.214 kg Physical Exam 2 Const: COMMON NORMALS: no acute distress, patient oriented x3 and alert HENMT: COMMON NORMALS: normocephalic HEAD & SCALP: normocephalic Eye: COMMON NORMALS: Equal, round and reactive pupils present PUPIL: Yes Equal, round and reactive pupils present Neck/C-Spine: COMMON NORMALS: full ROM and no JVD Chest: COMMONS NORMALS: normal inspection of the chest Resp: COMMON NORMALS: normal respiratory effort Cardio: COMMON NORMALS: no JVD, regular rate and regular rhythm RATE: r egular rate RHYTHM: regular rhythm GI: COMMON NORMALS: Normal to inspection, nondistended, normoactive bowel sounds present Extremity: GENERAL: Yes normal exam except as noted Neuro: COMMON NORMALS: patient oriented x3 SENSORIUM/ORIENTATION: Yes alert Psych: COMMON NORMALS: mental status grossly normal, cooperative, normal affect and speech normal SPEECH: Yes normal speech Data 08/22/25 08:30 08/23/25 08:40 A&P Assessment and plan 1. Psychiatric care: Continue Psychiatric Care 2. Acute psychosis: Continue Psychiatric Care Continue Discharge planning with CM Education on medication regimen. Hospitalist Service signing off. Recommending that patient follow up with PCP after discharge. 3. Cannabis use disorder: Cessation education. Current positive on this admission. 4. Legal guardianship: Father is Legal [place] 5. Methamphetamine use disorder, moderate, in sustained remission: Cessation education. PDMP PDMP Reviewed: Not Reviewed Attestations 2 Medical Necessity Statement*: Continue psychiatric assessment per psychiatry. Time Spent in Patient Care: 16 - 35 minutes Diagnoses Psychiatric care Z76.89 Acute psychosis F23 Cannabis use disorder F12.90 Legal guardianship Methamphetamine use disorder, moderate, in sustained remission F15.21
[2025-08-25 20:07] VITALS: BP 102/68; PULSE 83; RESP 18; TEMP 37; O2SAT 97
[2025-08-26 06:00] VITALS: BP 144/75; PULSE 98; RESP 16; TEMP 36.8; O2SAT 100
[2025-08-26] MEDS: insulin glargine 100 units/1 mL 25 UNIT SUBCUT (07:18)
--- NOTE | 2025-08-26 08:07 | PC.NURSE ---
Pt. was getting meds and another pt. was rambling in his room enough to be heard. Pt. asked if signee could ask pt. to shut up. Pt. then screamed at the top of her lungs my God . why do I have to put up with this . Pt. crying and went to phone.
--- NOTE | 2025-08-26 08:22 | PC.NURSE ---
Pt. up requesting ativan. Says she woke up screaming and yelling. Signee encouraged pt. to use her coping skills. Pt. still wanting ativan. Signee has just given her vistaril.
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
[2025-08-26 14:00] VITALS: BP 136/84; PULSE 17; RESP 96; TEMP 36.8; O2SAT 100
--- NOTE | 2025-08-26 15:12 | PC.NURSE ---
Pt. was on the phone with her dad and slammed the phone down and said fuck off .
--- NOTE | 2025-08-26 17:32 | PC.NURSE ---
Pt. refused her insulin stated it makes her got and makes her feet hurt.
[2025-08-26 20:21] VITALS: BP 123/83; PULSE 99; RESP 16; TEMP 36.9; O2SAT 98
--- NOTE | 2025-08-26 20:29 | PC.NURSE ---
Pt declined insulin against medical avice. NO insulin was given.
--- NOTE | 2025-08-26 21:44 | PC.NURSE ---
On the ball of pt left foot there is a white callous looking area. Pt states that the area is very tender to touch. You can see visible redness and swelling in the ball of the foot. This nurse will pass it on to day shift for Dr. Shoemaker to look at in rounding.
[2025-08-27 06:00] VITALS: BP 118/79; PULSE 89; RESP 18; TEMP 37; O2SAT 96
[2025-08-27] MEDS: insulin glargine 100 units/1 mL 25 UNIT SUBCUT ×2 (06:49→19:37)
--- NOTE | 2025-08-27 06:56 | PC.NURSE ---
Pt. took her long acting insulin, but when signee went to give short acting insulin pt. stated she was scared and didn't want to . Signee educated pt. on what her current blood sugar was, what DKA was, and how DM destroys organs and vision. Pt. stated she had her DM under control and has no issues with her DM. Signee again asked pt. is she would take her short acting insulin and pt. refused. Signee properly disposed of the insulin.
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
--- NOTE | 2025-08-27 09:46 | PC.NURSE ---
Pt. confused and not making any since. Pt. took a shower and when she got out the shower she did not know the date or time and was asking what happened and where did the food go. She was informed the time of the day and seemed very confused about that.
--- NOTE | 2025-08-27 10:57 | PC.NURSE ---
Dr. Shoemaker was informed about the pt.'s need for a medical consult d/t a sore on her left foot.
[2025-08-27 14:00] VITALS: BP 116/77; PULSE 99; RESP 18; TEMP 36.3; O2SAT 97
--- NOTE | 2025-08-27 15:19 | PC.NURSE ---
Pt. came up to nurses station and began yelling at the PAPER DELIVERER claiming she was talking about her to other pt.'s. Pt. then started yelling at the PAPER DELIVERER to keep her name out of her mouth.... Among other things. Pt. is being paranoid and thinks the PAPER DELIVERER is talking about her.
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
--- NOTE | 2025-08-27 16:21 | PC.NURSE ---
Signee asked pt. who she was talking to on the phone about 20 min ago because she said her dad was a POS and he wouldn't answer the phone. Signee said who was you talking to about your blood sugars on the phone 20 min ago. Pt. said Adams Shoemaker, the doctor here.
--- NOTE | 2025-08-27 16:35 | PC.NURSE ---
Signee got a call from the [employer] police dept. Pt. had called wanting a well being check done on her father. Police got ahold of the father and he is fine. Pt. had talked to her father about 30 min prior.
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
[2025-08-27 20:10] VITALS: BP 115/80; PULSE 102; RESP 18; TEMP 36.6; O2SAT 96
[2025-08-28 06:00] VITALS: BP 103/65; PULSE 87; RESP 18; TEMP 37; O2SAT 99
--- NOTE | 2025-08-28 07:46 | PC.NURSE ---
Pt. refused her assessment this am when signee was asking the questions pt. said does it mater you guys are not going to do anything about it.
[2025-08-28] MEDS: insulin glargine 100 units/1 mL 25 UNIT SUBCUT (07:48)
--- NOTE | 2025-08-28 08:47 | PC.NURSE ---
Pt. got up very anxious and agitated today. Pt. again was getting the Dr. and Social workers name mixed up and wanted to talk to the Dr. and woodworker helper. Signee explained it was very early and SS was not her as of yet and the Dr. had just arrived and would see her. Pt. saying she was only here d/t her high blood sugar, and called her father was on the phone for a very short time and she screamed at the top of her lungs this is bullshit on the phone to her father. The phone was shut off from inside the nurses station and pt.'s phone privileges has been revoked for the time being.
[2025-08-28 14:00] VITALS: BP 125/79; PULSE 109; RESP 18; TEMP 36.6; O2SAT 100
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
[2025-08-28 20:39] VITALS: BP 132/67; PULSE 103; RESP 19; TEMP 36.6; O2SAT 96
[2025-08-29 06:00] VITALS: BP 98/61; PULSE 93; RESP 16; TEMP 36.9; O2SAT 97
[2025-08-29 08:08] VITALS: BP 126/78; PULSE 116
[2025-08-29] MEDS: diphenhydrAMINE 50 mg/mL SDV 1mL IM (12:02)
[2025-08-29] MEDS: haloperidol inj 5 mg/mL INJ 1 mL IM (12:02)
[2025-08-29] MEDS: LORazepam 2 mg/mL INJ 1 mL IM (12:03)
--- NOTE | 2025-08-29 12:03 | PC.NURSE ---
administered prn haloperidol 5mg, lorazepam 2mg, benadryl 50mg Im for pt yelling, crying, stating her father is because she can not get ahold of him
[2025-08-29 14:00] VITALS: RESP 16
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
[2025-08-29 20:04] VITALS: BP 116/65; PULSE 99; RESP 18; TEMP 36.6; O2SAT 96
[2025-08-30 06:00] VITALS: BP 132/63; PULSE 120; RESP 18; TEMP 37.2; O2SAT 97
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
[2025-08-30 14:27] VITALS: BP 123/77; PULSE 109; RESP 18; TEMP 36.8; O2SAT 96
--- NOTE | 2025-08-30 15:45 | PC.NURSE ---
Patient at nurses station a few times this shift requesting medication for anxiety. Patient has been mostly cooperative with care. She has been refusing her Lantus due to this causing her to feel like she is dying. Extensive education given over the different types of insulin then all of her medication. Patient is wanting to look into the [facility] in the area.
[2025-08-30 20:57] VITALS: BP 119/79; PULSE 95; RESP 18; TEMP 36.6; O2SAT 97
[2025-08-31 06:00] VITALS: BP 120/76; PULSE 126; RESP 18; TEMP 36.9; O2SAT 97; BMI 29.4
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
--- NOTE | 2025-08-31 13:09 | PC.NURSE ---
Dr. Khanna came to see pt. today. to look at thyroid levels and something for acute pain.
[2025-08-31 13:23] VITALS: BP 115/71; PULSE 95; RESP 18; TEMP 36.5; O2SAT 97
[2025-08-31 20:14] VITALS: BP 123/76; PULSE 102; RESP 17; TEMP 36.9; O2SAT 94
[2025-09-01 06:00] VITALS: BP 129/89; PULSE 91; RESP 17; TEMP 36.8; O2SAT 97
--- NOTE | 2025-09-01 09:00 | PC.NURSE ---
refused scheduled Lantus this morning
--- NOTE | 2025-09-01 10:50 | PC.NURSE ---
prn Haldol 5 mg given po per pt c/o stated agitation. upset after phone call with father.
[2025-09-01 14:00] VITALS: BP 116/65; PULSE 75; RESP 18; TEMP 36.6; O2SAT 94
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
[2025-09-01 20:50] VITALS: BP 117/79; PULSE 103; RESP 18; TEMP 36.6; O2SAT 97
--- NOTE | 2025-09-01 22:01 | PC.NURSE ---
pt came to the nurses station stating she felt weird after taking the insulin she received earlier. This [employer] retook her blood sugar per Nurse it was 368. Will continue to monitor
[2025-09-02 06:00] VITALS: BP 117/76; PULSE 94; RESP 17; TEMP 36.8; O2SAT 96
[2025-09-02] MEDS: insulin glargine 100 units/1 mL 25 UNIT SUBCUT ×2 (07:56→18:17)
[2025-09-02 14:00] VITALS: BP 123/77; PULSE 109; RESP 17; TEMP 36.6; O2SAT 97
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
[2025-09-02 20:08] VITALS: BP 143/92; PULSE 86; RESP 18; TEMP 36.9; O2SAT 96
[2025-09-03 06:00] VITALS: BP 108/71; PULSE 91; RESP 16; TEMP 37; O2SAT 97
[2025-09-03] MEDS: insulin glargine 100 units/1 mL 25 UNIT SUBCUT ×2 (06:56→18:37)
[2025-09-03 14:00] VITALS: BP 113/62; PULSE 97; RESP 16; TEMP 36.6; O2SAT 98
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
[2025-09-03 20:04] VITALS: BP 112/76; PULSE 88; RESP 18; TEMP 36.9; O2SAT 96
[2025-09-04 06:00] VITALS: BP 100/66; PULSE 91; RESP 16; TEMP 37; O2SAT 97
[2025-09-04] MEDS: insulin glargine 100 units/1 mL 25 UNIT SUBCUT ×2 (07:54→19:57)
[2025-09-04 13:23] VITALS: BP 115/75; PULSE 97; RESP 16; TEMP 36.8; O2SAT 98
--- NOTE | 2025-09-04 14:51 | PC.NURSE ---
Dr. Huitron gave a v/o for Klonopin 0.5mg po now.
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
[2025-09-04 20:04] VITALS: BP 108/68; PULSE 93; RESP 18; TEMP 36.9; O2SAT 98
[2025-09-05 06:00] VITALS: BP 111/75; PULSE 85; RESP 16; TEMP 37.1; O2SAT 97
[2025-09-05] MEDS: insulin glargine 100 units/1 mL 25 UNIT SUBCUT ×2 (07:21→19:10)
--- NOTE | 2025-09-05 09:07 | PC.NURSE ---
Pt. took both long acting and short acting insulin this am as ordered.
[2025-09-05 12:50] VITALS: BP 104/72; PULSE 99; RESP 18; TEMP 36.8; O2SAT 98
--- NOTE | 2025-09-05 13:07 | PC.NURSE ---
Pt. requested anxiety medication after talking with her father on the phone. Pt. stated she felt like she was going to pass out. Zyprexa was given prn.
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
--- NOTE | 2025-09-05 16:52 | PC.NURSE ---
TB blood test ordered d/t [facility] will accept pt. the middle of next week pending blood results.
[2025-09-05 21:09] VITALS: BP 120/80; PULSE 91; RESP 17; TEMP 36.7; O2SAT 99
--- NOTE | 2025-09-06 06:18 | PC.NURSE ---
vs not completed per nursing due to very restless night and finally sleeping soundly resp 17
[2025-09-06] MEDS: insulin glargine 100 units/1 mL 25 UNIT SUBCUT ×2 (08:16→20:04)
--- NOTE | 2025-09-06 08:34 | PC.NURSE ---
Pt.'s blood sugar this am was 169. Pt. was happy about this d/t it is the lowest it has been since she has been here. Pt. took her short and long acting insulin this am.
[2025-09-06 14:00] VITALS: BP 125/60; PULSE 88; RESP 18; TEMP 37; O2SAT 98
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
[2025-09-06] MEDS: benzocaine 20% 7 gm 1 APPLIC MUCOUS MEM (19:37)
[2025-09-06 20:24] VITALS: BP 109/59; PULSE 98; RESP 18; TEMP 36.9; O2SAT 98
[2025-09-07 06:00] VITALS: BP 138/68; PULSE 106; RESP 18; TEMP 36.8; O2SAT 95; BMI 29.9
--- NOTE | 2025-09-07 07:31 | P.PN_ITS ---
Subjective 2 Subjective: My attention was called this morning to patient's blood sugar reported to be very high. Patient's blood sugar reported to be 561. Otherwise, he has been well below 300 in the last few days. Patient, as a a week ago, was refusing her insulin, but has been agreeing to that for the past 4 days or so. She gets 25 units of Lantus twice a day, plus high dose sliding scale insulin. Seeing her, she reports that she had eaten a lot of food and junk food during the night. She denies any other new complaints. Vitals/I&O/Wt Last Vital Signs Temp 98.2 F 09/07/25 06:00 Pulse 106 H 09/07/25 06:00 Resp 18 09/07/25 06:00 BP 138/68 09/07/25 06:00 Pulse Ox 95 09/07/25 06:00 O2 Del Method Room Air 09/07/25 06:00 09/06/25 09/07/25 09/07/25 22:59 06:59 14:59 Intake Total 480 / 480 Balance 480 / 480 Weight last 48 hrs Weight 86.806 kg Physical Exam 2 Narrative: General: Awake and alert. Cooperative. Chest/Resp: Normal respiratory chest movts; no obvious respiratory distress. CVS: Regular heart rate and rhythm. GI: Non-distended; No obvious organomegaly. Extremities: No obvious pitting pedal edema. Skin: No obvious new rashes or new skin lesions. Data 08/22/25 08:30 09/07/25 08:27 Other Labs: [id number] blood sugar at 7.06am: 561. A&P Assessment and plan 1. Hyperglycemia: 2. Type 2 diabetes mellitus with insulin therapy: 3. Schizophrenia: Plan: For the severe hyperglycemia, I ordered 10 units of IV insulin +1 L bolus of normal saline. Continue the sliding scale insulin, in addition to 2 units of insulin this AM.. Upon rechecking about 2 hours later, patient's blood sugar has gone down to 247. Otherwise, BMP done this morning was not of any significance. Going forward, I am adding 5 units of lispro with each meal, in addition to the ongoing sliding scale. Also, resume patient's metformin, which she takes at home, but at in increased dose of 850 mg bid. Continued other ongoing treatment plans, especially as directed by the psychiatrist. Hospitalist will continue to follow peripherally, and make further changes as may be needed. PDMP PDMP Reviewed: Not Reviewed Attestations 2 Medical Necessity Statement*: N/A. Coding Level of Care Code Acute Code for Chg Fwd Diagnoses Hyperglycemia R73.9 Type 2 diabetes mellitus with insulin therapy E11.9; Z79.4 Schizophrenia F20.9
[2025-09-07] MEDS: insulin glargine 100 units/1 mL 25 UNIT SUBCUT ×2 (08:05→20:10)
--- NOTE | 2025-09-07 08:09 | PC.NURSE ---
Pt.'s blood sugar this am was 561. Pt. stated she was up all HS eating. Signee called Dr. Khanna the railroad design consultant hospitalist and he came down to the unit and saw pt. He ordered Insulin lispro 10u IV now one time only, Sodium Chloride IV 1000ml to run over 1 hr., Insulin Lispro 20 units now, and re check blood sugar in 2 hrs. IV placed in right top hand. IV fluids running pt. has a one on one sitter until IV fluids are completed running.
[2025-09-07 09:16] LABS: Anion Gap 16.1 (5-19); Blood Urea Nitrogen 16 mg/dL (6-20); Calcium 8.6 mg/dL (8.5-10.5); Carbon Dioxide 23 mmol/L (22-29); Chloride 99 mmol/L (98-107); Glucose 305 mg/dL (65-115); Osmolality Calculated 291 mOsm/kg (285-295); Potassium 4.1 mmol/L (3.5-5.1); Sodium 134 mmol/L (136-145)
[2025-09-07 14:00] VITALS: BP 122/84; PULSE 93; RESP 16; TEMP 37; O2SAT 98
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
[2025-09-07 20:39] VITALS: BP 107/71; PULSE 90; RESP 18; TEMP 36.7; O2SAT 97
[2025-09-08] MEDS: insulin glargine 100 units/1 mL 25 UNIT SUBCUT ×2 (07:25→18:55)
[2025-09-08 07:38] VITALS: BP 121/76; PULSE 120; RESP 18; TEMP 36.9; O2SAT 95
--- NOTE | 2025-09-08 09:02 | PC.NURSE ---
Pt. compliant with am insulin doses
--- NOTE | 2025-09-08 10:52 | PC.NURSE ---
Dr. Huitron gave verbal order to increase Tizanidine 4mg PO TID.
[2025-09-08 13:56] VITALS: BP 120/66
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
[2025-09-08 19:39] VITALS: BP 116/78; PULSE 87; RESP 16; TEMP 36.9; O2SAT 96
[2025-09-09 06:00] VITALS: BP 132/81; PULSE 84; RESP 16; O2SAT 98
--- NOTE | 2025-09-09 06:47 | PC.NURSE ---
pt behavior elly is up already this morning. she is currently wanting to use the phone.
[2025-09-09] MEDS: insulin glargine 100 units/1 mL 25 UNIT SUBCUT ×2 (07:25→18:34)
[2025-09-09 14:00] VITALS: BP 130/66; PULSE 76; RESP 16; TEMP 37; O2SAT 98
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
[2025-09-09] MEDS: paliperidone palmitate 234 mg Syringe IM (17:24)
--- NOTE | 2025-09-09 17:30 | PC.NURSE ---
Pt given 234mg IM Invega shot. Pt tolerated well.
[2025-09-09 20:06] VITALS: BP 122/83; PULSE 92; RESP 17; TEMP 36.8; O2SAT 98
[2025-09-10 06:00] VITALS: BP 121/81; PULSE 93; RESP 17; TEMP 36.9; O2SAT 98
[2025-09-10] MEDS: insulin glargine 100 units/1 mL 25 UNIT SUBCUT (07:25)
[2025-09-10 07:50] VITALS: BP 121/81; PULSE 93; RESP 17; TEMP 36.9; O2SAT 98
--- NOTE | 2025-09-10 10:58 | P.NPUDS_ITS ---
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 30 mg tablet 30 mg PO DAILY Qty: 30 1RF quetiapine 100 mg tablet 100 mg PO BEDTIME 30 Days Qty: 30 1RF tizanidine 4 mg Tablet 4 mg PO TID PRN (Reason: Spasms) 30 Days Qty: 90 1RF Invega Sustenna 234 mg/1.5 mL syringe 234 mg IM Q30D Qty: 1.5 0RF Rx Instructions: IM Due date 10/07/25. insulin glargine [Lantus Solostar U-100 Insulin] 100 unit/mL (3 mL) insulin pen 25 unit SUBCUT BID 30 Days Qty: 30 0RF insulin lispro [Humalog Carl KwikPen U-100] 100 unit/mL insulin pen, half- unit See Rx Instructions .ROUTE .COMPLEX Qty: 15 0RF Rx Instructions: inject, subcut, tid after meals, based on low dose insulin sliding scale amlodipine 10 mg tablet 10 mg PO DAILY 30 Days Qty: 30 0RF Continued famotidine [Pepcid] 20 mg tablet 20 mg PO BID hydroxyzine HCl 25 mg tablet 25 mg PO DAILY PRN (Reason: Anxiety) vitamin B complex Capsule 1 cap PO DAILY medroxyprogesterone [Depo-Provera] 150 mg/mL syringe 150 mg IM .[id number] albuterol sulfate 90 mcg/actuation aerosol powdr breath activated 2 inh inhalation Q6H PRN (Reason: Shortness Of Breath) Ozempic 1 mg/dose (4 mg/3 mL) pen injector 1 mg SUBCUT Q7D Rx Instructions: Monday Invega Sustenna 234 mg/1.5 mL syringe 234 mg IM Q28D rosuvastatin 40 mg Tablet 40 mg PO BEDTIME lamotrigine 150 mg tablet 150 mg PO BID 30 Days Qty: 60 3RF labetalol 200 mg tablet 100 mg PO BID Qty: 30 1RF lisinopril 10 mg Tablet 10 mg PO DAILY 30 Days Qty: 30 1RF cholecalciferol (vitamin D3) 125 mcg (5,000 unit) capsule 125 mcg PO DAILY 30 Days Qty: 30 1RF dicyclomine 10 mg capsule 10 mg PO QID Qty: 120 1RF Discontinued celecoxib [Celebrex] 200 mg capsule 200 mg PO BID insulin glargine [Lantus U-100 Insulin] 100 unit/mL solution 25 unit SUBCUT .at bed naltrexone 50 mg tablet 50 mg PO DAILY simvastatin 40 mg tablet 40 mg PO DAILY glipizide 5 mg tablet 5 mg PO DAILY Novolin N FlexPen 100 unit/mL (3 mL) insulin pen 20 unit SUBCUT QID PRN (Reason: high blood sugar) Rx Instructions: per s/s aripiprazole [Abilify] 15 mg tablet 15 mg PO DAILY 30 Days Qty: 30 5RF gabapentin 100 mg capsule See Rx Instructions .ROUTE .COMPLEX Qty: 120 0RF Dose Instruction: TAKE TWO CAPSULES BY MOUTH TWICE DAILY Rx Instructions: TAKE TWO CAPSULES BY MOUTH TWICE DAILY metformin 500 mg tablet 500 mg PO BID Discharge Order = DC NOW: Discharge Order (Routine); Ordered 09/10/25 Ordered By: Pedro Luis Huitron Referrals: [facility] [Other] - 09/10/25 11:00 am [facility] [Outside] - 09/16/25 9:00 am Referral Note: Shahida Royal FNP [Primary Care Provider, Nurse Practitioner] - 1-3 days Niki Foster MD [Physician, Endocrinology] - 4-7 days Patient Instructions: Opioid Safety, Patient Portal & [place] Instructions Activity Restrictions/Additional Instructions: -Please monitor your blood sugars closely -Monitor your blood sugars 3 times daily as after meals -Please record your blood sugars, and a blood sugar log -For your NovoLog -Please inject blood sugar after meals based on sliding scale provided -Do not inject insulin if you do not eat as hypoglycemia kills -This is a NovoLog sliding scale -Insulin sliding ?fingerstick? Insulin ?141-180?6 units/sq 181-220?8 units/sq ?221-260?10 units/sq ?261-300 12 units/sq ?301-350?14 units/sq ?351-400 16 units/sq ?401-450?18 units/sq >450? 20 units/sq -If your blood sugar is greater than 500 go to the emergency room -If your blood sugar is less than 60 or at anytime you feel lightheaded or dizzy or diaphoretic or have chest palpitations check your blood sugar, and eat a hard candy or drink orange juice and go immediately to the emergency room -Remember hypoglycemia kills, so if his blood sugar is less than 60 we have to increase it by taking in a sugary meal such as a hard candy or orange juice and go to the emergency room -If you have any questions please call us where here to help Discharge Attestations NPU Time Spent in Discharge Care*: less than 30 min Specific Discharge Activities: Specific discharge activities: educating patient, discussing with sample case porter/social workers/dc planners, documenting/other paperwork and evaluating patient/reviewing data Coding Level of Care Code Acute Code for Chg Fwd Diagnoses Schizophrenia F20.9 Acute psychosis F23 Hyperglycemia R73.9 Type 2 diabetes mellitus with insulin therapy E11.9; Z79.4 Legal guardianship Alcohol use disorder, moderate, in early remission F10.21 Cannabis use disorder F12.90 Methamphetamine use disorder, moderate, in sustained remission F15.21
--- NOTE | 2025-09-10 13:39 | DCPLANNER ---
IMM completed 09/10/2025 @ [id number] verbally.
== END 2025-09-10 11:15 | disposition home or self-care (01) | DRG 885 ==
LOC: ER 20:45 → NP 21:49 → MEDSURG 08-20 11:19 → NP 08-21 16:22
PROVIDERS: Clinical Nurse Specialist Acute Care; Family Medicine; Internal Medicine; Admitting Provider Psychiatry & Neurology Psychiatry; Emergency Provider Emergency Medicine; PCP Nurse Practitioner; Visit Provider Psychiatry & Neurology Psychiatry
DX: F25.0 Schizoaffective disorder, bipolar type (principal); N39.0 Urinary tract infection, site not specified; E11.649 Type 2 diabetes mellitus with hypoglycemia without coma; E11.65 Type 2 diabetes mellitus with hyperglycemia; F41.1 Generalized anxiety disorder; E86.0 Dehydration; F15.21 Other stimulant dependence, in remission; F12.90 Cannabis use, unspecified, uncomplicated; R25.9 Unspecified abnormal involuntary movements; F10.21 Alcohol dependence, in remission; Z79.4 Long term (current) use of insulin; Z79.899 Other long term (current) drug therapy
CPT/HCPCS: 36415; 36416; 76770; 80048; 80053; 80074; 80306; 80307; 81001; 81025; 82009; 82728; 82962; 83036; 83540; 83550; 83735; 84145; 84443; 85025; 86140; 86480; 87040; 87086; 87806; 96361; 96372; 96374; 96375; 96376; 97150; 97165; 97167; 99285; J0696; J1200; J1630; J1815; J2060; J7030; J9999; Q0163